=== PATIENT | female | born 1990 | race Caucasian/White ===

== ENCOUNTER 2021-05-31 15:42 | Emergency (ER) | payer OTHER, SELFPAY ==
--- NOTE | ~2021-05-31 | XR_ITS ---
EXAMINATION: XR FOOT, RIGHT XR FOOT, LEFT CLINICAL INFORMATION: Bilateral foot pain. COMPARISON: None TECHNIQUE: AP, lateral, and oblique views of each foot. FINDINGS: RIGHT FOOT: Small enthesopathic spur is present at the plantar fascial origin on the calcaneus. No fracture. Alignment is anatomic. Joint spaces are maintained. LEFT FOOT: Small enthesopathic spur is present at the plantar fascial origin on the calcaneus. No fracture. Alignment is anatomic. Joint spaces are maintained. XR/XR foot RT 2V IMPRESSION: No acute osseous findings in the feet. Small plantar calcaneal enthesopathic spurs bilaterally.
--- NOTE | ~2021-05-31 | XR_ITS ---
EXAMINATION: XR FOOT, RIGHT XR FOOT, LEFT CLINICAL INFORMATION: Bilateral foot pain. COMPARISON: None TECHNIQUE: AP, lateral, and oblique views of each foot. FINDINGS: RIGHT FOOT: Small enthesopathic spur is present at the plantar fascial origin on the calcaneus. No fracture. Alignment is anatomic. Joint spaces are maintained. LEFT FOOT: Small enthesopathic spur is present at the plantar fascial origin on the calcaneus. No fracture. Alignment is anatomic. Joint spaces are maintained. XR/XR foot LT 2V IMPRESSION: No acute osseous findings in the feet. Small plantar calcaneal enthesopathic spurs bilaterally.
[2021-05-31 16:24] VITALS: BP 125/49; PULSE 72; RESP 18; TEMP 36.7; O2SAT 98; BMI 31.3
[2021-05-31 18:36] VITALS: BP 112/54; PULSE 61; RESP 16; TEMP 37.1; O2SAT 99
--- NOTE | 2021-05-31 18:49 | ED.LOWEXIN ---
HPI - Extremity Injury (Lower) General Chief Complaint: Extremity Injury, Lower Stated Complaint: feet pain Time Seen by Provider: 05/31/21 20:03 Source: patient Mode of arrival: ambulatory Limitations: no limitations History of Present Illness HPI Narrative: 31-year-old female with no significant past medical history presents with 4 days of bilateral foot pain. States that it hurts more in the morning than at night, however it is painful throughout the day. She feels pain from the heel all way up to the toes to both feet. She does not report any trauma, jumping, running, or any significant physical exertion. Does not have any immune deficiencies or known osteoporosis. Does not take any prednisone or hormones. Denies any other concerning symptoms at this time. MD complaint: foot injury Onset (ago): day(s) (4) Type of Injury: unknown Place: home Severity: moderate Severity scale (1-10): 6 Relieving factors: nothing Exacerbating factors: weight bearing, movement and palpation Other symptoms: none Related Data Previous Rx's Medication Instructions Recorded cetirizine 10 mg capsule (All Day 10 mg PO DAILY #90 cap 12/18/20 Allergy (cetirizine)) ibuprofen 800 mg tablet 800 mg PO TID PRN #90 tab 12/18/20 ibuprofen 600 mg tablet 600 mg PO Q6H PRN #60 tab 05/31/21 Allergies Allergy/AdvReac Type Severity Reaction Status Date / Time No Known Allergies Allergy Unverified 07/17/20 18:35 [No Known Allergies*] Review of Systems Review of Systems: Constitutional: No Fever, No Chills ENT/Mouth: No Ear Pain, No Hoarseness, No sore throat Eyes: No Eye Pain, No Swelling, No Redness, No Foreign Body Cardiovascular: No Chest Pain, No SOB Respiratory: No Cough, No Dyspnea Gastrointestinal: No Nausea, No Vomiting, No Diarrhea, No abdominal Pain Genitourinary: No Dysuria, No Hematuria Musculoskeletal: positive bilateral foot pain, No Myalgias, No Joint Swelling Skin: No Skin lacerations, No rash Neuro: No Weakness, No Numbness, No Paresthesias, No Loss of Consciousness, No Dizziness, No Headache Psych: No Anxiety/Panic, No Depression Heme/Lymph: no easy bruising, no Lymphadenopathy Endocrine: No Polyuria, No Polydipsia Yes all other systems are reviewed and are negative PMFSH Past Medical History Attestation statement: The following information was validated with the patient. Source: old records reviewed Medical History delivery delivered Dysmenorrhea Overweight Rhinitis, allergic Family History Family History Father No problems noted. Mother No problems noted. Social History Social History Advance Directives: No Advance Directives Information Provided: Yes Patient : No Physical Exam Vital Signs: Vital Signs: Last Vital Signs Temp 98.7 F 05/31/21 18:36 Pulse 61 05/31/21 18:36 Resp 16 05/31/21 18:36 BP 112/54 L 05/31/21 18:36 Pulse Ox 99 05/31/21 18:36 Body Mass Index 31.3 Appearance: Alert. Oriented X3. No acute distress. Eyes: Pupils equal, round and reactive to light. ENT: Pharynx normal. Neck: Normal inspection. Neck supple. CVS: Normal heart rate and rhythm. Pulses normal. Respiratory: No respiratory distress. Breath sounds normal. Abdomen: Soft and nontender. Skin: Skin warm and dry. Normal skin color. Normal skin turgor. Extremities: No lower extremity edema. Full range of motion to all extremities, gait well balanced well coordinated, brisk capillary refill and equal pedal pulses. Neuro: No motor deficit. No sensory deficit. Cranial nerves 2-12 intact. Course Course Course Narrative: 31-year-old female presents with bilateral foot pain, her descriptions sounds most likely like plantar fasciitis however and will order x-rays to rule out fracture, and osteophytes. Bilateral calcaneal spurs noted to x-rays, will refer to Podiatry. Patient verbalized understanding of and agrees to plan of care discharge home. MDM - Extremity Injury (Lower) [facility] Narrative Medical decision making narrative: Plantar fasciitis, calcaneal spur Differential Diagnosis Differential diagnosis: Likely ankle sprain and strain Medical Records Attestation: I reviewed the patient's medical records. Imaging Data Bilateral foot x-ray: Attestation: I personally reviewed and interpreted this imaging study as follows: Radiologist's impression: EXAMINATION: XR CHEST CLINICAL INFORMATION: SOB. COMPARISON: Chest 03/04/2021 TECHNIQUE: 2 views of the chest were obtained. FINDINGS: There is mild cardiomegaly. The pulmonary vascularity is normal. The lungs are well-expanded and clear. No gross bony abnormality seen. XR/XR chest 2V IMPRESSION: Mild cardiomegaly. No acute process seen. Discharge Plan Discharge Clinical Impression: Bilateral calcaneal spurs Patient Disposition: Home, Self-Care Instructions: Plantar Fasciitis (ED), Heel Spur (ED) Additional Instructions: You were evaluated for bilateral foot pain. X-rays indicate heel spurs. Please follow-up with Podiatry. Your symptoms are also consistent with plantar fasciitis. Please use Motrin 600 mg every 6 hours as needed for pain management. Use ice to help alleviate pain. Follow-up with podiatry. Thank you for choosing this emergency department for evaluation. Please follow-up with primary care physician as needed. Return to the emergency department for any new, concerning, or worsening symptoms. Prescriptions: New ibuprofen 600 mg tablet 600 mg PO Q6H PRN (Reason: pain) Qty: 60 RF: 0 No Action All Day Allergy (cetirizine) 10 mg capsule 10 mg PO DAILY Qty: 90 RF: 3 ibuprofen 800 mg tablet 800 mg PO TID PRN (Reason: pain) Qty: 90 RF: 3 Referrals: Dylan Ruiz [Physician] - 2 days (Plantar fasciitis and calcaneal spurs bilaterally) Interventions: ED Discharge Assessment Last Done: 05/31/21 20:25 Discharge Date/Time: 05/31/21 20:26
== END 2021-05-31 20:26 | disposition home or self-care (01) ==
PROVIDERS: Emergency Provider Internal Medicine; PCP Internal Medicine
DX: M72.2 Plantar fascial fibromatosis (principal); M77.31 Calcaneal spur, right foot; M77.32 Calcaneal spur, left foot; Z79.899 Other long term (current) drug therapy
CPT/HCPCS: 73620; 99283

== ENCOUNTER 2021-10-21 06:01 | Outpatient (REF) | payer OTHER, SELFPAY ==
[2021-10-21 11:49] LABS: Hematocrit 37.4 % (37.0-47.0); Hemoglobin 11.6 g/dl (12.0-16.0); Mean Corpuscular Hemoglobin 27.8 pg (27.0-33.0); Mean Corpuscular Volume 89.5 fL (80.0-98.0); Mean Platelet Volume 9.2 fL (9.4-12.3); Platelet Count 328 X10*3/uL (160-400); Red Blood Count 4.18 X10*6/uL (4.20-5.50); Red Cell Distribution Width 12.7 % (11.0-16.0); White Blood Count 4.7 X10*3/uL (4.8-10.8)
[2021-10-21 12:18] LABS: Alanine Aminotransferase 18 U/L (0-31); Alkaline Phosphatase 71 U/L (39-117); Anion Gap 10 (12-20); Aspartate Amino Transferase 16 U/L (5-31); Bilirubin Total 0.5 mg/dL (0.0-1.0); Blood Urea Nitrogen 9 mg/dL (9-16); Carbon Dioxide 27 mmol/L (22-29); Chloride 109 mmol/L (96-108); Cholesterol 178 mg/dL; Estimated Glomerular Filt Rate > 60; Glucose Fasting 98 mg/dL (60-99); HDL Cholesterol 44 mg/dL; LDL Cholesterol Calculated 124 mg/dl; Potassium 3.7 mmol/L (3.3-5.1); Sodium 142 mmol/L (135-145); Total Protein 6.7 g/dL (6.5-8.0); Triglycerides 53 mg/dL
== END 2021-10-21 06:02 | disposition home or self-care (01) ==
LOC: HO.HMGCLDS 06:01
PROVIDERS: PCP Internal Medicine; Visit Provider Internal Medicine
DX: Z00.00 Encounter for general adult medical examination without abnormal findings (principal)
CPT/HCPCS: 36415; 80053; 80061; 85027

== ENCOUNTER 2023-01-19 07:28 | Outpatient (REF) | payer OTHER, SELFPAY ==
[2023-01-22 08:39] LABS: TS Negative Control Passed; TS Panel A 0; TS Panel B 0; TS Positive Control Passed; TSpotTB Negative (Negative)
== END 2023-01-19 07:29 | disposition home or self-care (01) ==
LOC: HO.HMGCLDS 07:28
PROVIDERS: PCP Internal Medicine; Visit Provider Internal Medicine
DX: Z11.1 Encounter for screening for respiratory tuberculosis (principal)
CPT/HCPCS: 36415; 86481

== ENCOUNTER 2023-02-03 08:28 | Outpatient (REF) | payer OTHER, SELFPAY ==
[2023-02-03 11:33] LABS: MANUAL DIFF FLAG NO
[2023-02-03 11:46] LABS: Basophils Percent Auto 0.7 % (0-2); Eosinophils Absolute Auto 0.2 X10*3/uL (0.0-0.4); Eosinophils Percent Auto 3.9 % (0-4); Hematocrit 37.1 % (37.0-47.0); Hemoglobin 11.7 g/dl (12.0-16.0); Imm Gran Abs Auto 0.01 X10*3/uL (0.00-0.03); Imm Gran Pct Auto 0.2 % (0.0-0.4); Lymphocytes Absolute Auto 1.3 X10*3/uL (1.2-4.9); Lymphocytes Percent Auto 30.4 % (20-40); Mean Corpuscular HGB Conc 31.5 g/dl (31.0-35.0); Mean Corpuscular Hemoglobin 27.3 pg (27.0-33.0); Mean Corpuscular Volume 86.7 fL (80.0-98.0); Mean Platelet Volume 9.1 fL (9.4-12.3); Monocytes Absolute Auto 0.3 X10*3/uL (0.1-1.2); Neutrophils Absolute Auto 2.4 x10*3/uL (2.0-8.3); Neutrophils Percent Auto 56.8 % (45-73); Platelet Count 350 X10*3/uL (160-400); Red Blood Count 4.28 X10*6/uL (4.20-5.50); Red Cell Distribution Width 13.4 % (11.0-16.0); White Blood Count 4.2 X10*3/uL (4.8-10.8)
[2023-02-03 11:53] LABS: Appearance Urine Clear; Color Urine Yellow; Glucose Urine UA Negative (Negative); Leukocyte Esterase Urine Trace (Negative); Nitrite Urine Negative (Negative); Specific Gravity - Urine 1.025 (1.005-1.025); UMIC TRIGGER UA YES; Urine Blood Trace (Negative); Urine Ketones Negative (Negative); Urine Protein Negative (Neg-Trace)
[2023-02-03 12:00] LABS: Bacteria Urine None Seen (None Seen); Hyaline Casts Urine 0-2 /LPF (0-2); Squamous Epithelial Cell Urine 0-2 /HPF (0-2); WBC Urine 0-5 /HPF (0-5)
[2023-02-03 12:10] LABS: Alanine Aminotransferase 22 U/L (0-31); Albumin Level 3.9 g/dL (3.5-5.0); Alkaline Phosphatase 85 U/L (39-117); Anion Gap 11 (12-20); Aspartate Amino Transferase 23 U/L (5-31); Bilirubin Total 0.7 mg/dL (0.0-1.0); Blood Urea Nitrogen 11 mg/dL (9-16); Calcium 8.8 mg/dL (8.4-10.2); Carbon Dioxide 25 mmol/L (22-29); Chloride 110 mmol/L (96-108); Cholesterol 179 mg/dL; Estimated Glomerular Filt Rate > 60; Glucose Fasting 85 mg/dL (60-99); HDL Cholesterol 43 mg/dL; Iron 112 mcg/dL (30-160); LDL Cholesterol Calculated 122 mg/dl; Percent Iron Saturation 33 % (15-50); Potassium 3.8 mmol/L (3.3-5.1); Sodium 142 mmol/L (135-145); Total Iron Binding Capacity 338 mcg/dL (228-428); Triglycerides 73 mg/dL; Unsaturated Iron Binding 226 ug/dL
[2023-02-03 12:28] LABS: TSH reflex Free T4 1.49 uIU/mL (0.32-4.0)
== END 2023-02-03 08:29 | disposition home or self-care (01) ==
LOC: HO.HMGCLDS 08:28
PROVIDERS: PCP Internal Medicine; Visit Provider Internal Medicine
DX: Z00.00 Encounter for general adult medical examination without abnormal findings (principal)
CPT/HCPCS: 36415; 80053; 80061; 81001; 83540; 84443; 85025

== ENCOUNTER 2023-06-24 17:27 | Emergency (ER) | payer OTHER, SELFPAY ==
[2023-06-24 18:13] VITALS: BP 135/61; PULSE 76; RESP 17; TEMP 36.4; O2SAT 99; BMI 37.8
--- NOTE | 2023-06-24 18:14 | ED.GENADULT ---
HPI - General Adult General Chief complaint: General Medical Stated complaint: lower back pain, blood in urine Time Seen by Provider: 06/24/23 22:13 Source: patient Mode of arrival: ambulatory Limitations: no limitations History of Present Illness HPI narrative: 33-year-old female previously healthy presents the ER with complaints of several months of intermittent hematuria with no associated dysuria, urinary frequency, urinary urgency. Patient reports she has been seen by her primary care doctor and was informed that she had some microscopic hematuria on her urinalysis. It was recommended that she return to be seen but the patient tells me that she never followed up. Patient reports she has had lower back pain which is intermittent and is worsened with movement over the last few months as well. She denies any flank pain, abdominal pain, vomiting, fevers or chills. No vaginal discharge, rashes or lesions. Related Data Previous Rx's Medication Instructions Recorded ibuprofen 800 mg tablet 800 mg PO TID PRN for pain #90 tabs 06/10/21 ibuprofen 600 mg tablet 600 mg PO Q6H PRN pain #60 tabs 11/24/22 cetirizine 10 mg capsule (All Day 10 mg PO DAILY #90 caps 01/17/23 Allergy (cetirizine)) cetirizine 10 mg tablet (Zyrtec) 10 mg PO DAILY #90 tabs 02/07/23 Allergies Allergy/AdvReac Type Severity Reaction Status Date / Time milk AdvReac Mild Rash Verified 02/03/23 07:50 Review of Systems Review of Systems: Yes all other systems are reviewed and are negative Constitutional: Constitutional: Reports no additional constitutional complaints, Denies body ache(s), Denies chills, Denies fever(s), Denies headache(s) and Denies weakness Eyes: Eyes: Reports no additional eye complaints and Denies change in vision ENT: Reports system reviewed and no additional complaints, except as documented, Denies dizziness, Denies headache(s), Denies nasal congestion, Denies nasal discharge and Denies neck pain Cardiovascular: Cardiovascular: Reports no additional cardiovascular complaints, Denies chest pain, Denies leg edema and Denies dyspnea Respiratory: Respiratory: Reports no additional respiratory complaints, Denies cough and Denies dyspnea Gastrointestinal: Gastrointestinal: Reports no additional gastrointestinal complaints, Denies abdominal pain, Denies diarrhea, Denies nausea and Denies vomiting Genitourinary: Genitourinary: Reports no additional female genitourinary complaints, Reports hematuria and Denies urinary incontinence Musculoskeletal: Musculoskeletal: Reports no additional musculoskeletal complaints, Reports back pain, Denies arthralgias, Denies joint swelling, Denies neck pain, Denies numbness and Denies tingling Integumentary/Breasts: Skin/Breast: Reports system reviewed and no additional complaints, except as docu and Denies rash Neurologic: Reports system reviewed and no additional complaints, except as documented, Denies dizziness, Denies headache(s), Denies numbness, Denies tingling and Denies weakness [facility] Past Medical History Attestation statement: The following information was validated with the patient. Source: old records reviewed and nursing notes reviewed Medical History Annual physical exam delivery delivered Dysmenorrhea Food allergy Normal pelvic exam Overweight Rhinitis, allergic Family History Family History Father No problems noted. Mother No problems noted. Social History Social History Housing: House Patient Tobacco Use Status: Never used Tobacco e-Cigarette/Vaping Use: Never Used Advance Directives: No Advance Directives Information Provided: No Current occupational status: employed Cognitive needs: No Hearing needs: No Vision needs: No Physical Exam ED Vital Signs: Vital Signs - 24 hr 06/24/23 18:13 06/24/23 22:59 Temperature 97.5 F 97.9 F Pulse Rate 76 79 Respiratory Rate 17 16 Blood Pressure 135/61 130/73 Pulse Oximetry 99 99 Oxygen Delivery Method Room Air Room Air BMI result Body Mass Index 37.8 Const General: cooperative, healthy appearing, comfortable and no acute distress Orientation/consciousness: patient oriented x3 Limitations: no limitations HENMT Head: Yes normal to inspection Ears: hearing grossly normal bilaterally Eyes General: appearance normal, both eyes and all related structures Pupils: Equal, round and reactive pupils present Neck Neck: Yes normal visual inspection and Yes full ROM Chest Chest palpation & inspection: normal inspection of the chest Resp Effort & Inspection: normal respiratory effort Auscultation: clear to auscultation bilaterally Cardio Rate: regular rate Rhythm: regular rhythm Peripheral pulses: Peripheral pulses 2+ throughout GI Inspection: Yes normal to inspection Palpation (GI): Soft to palpation and nontender Auscultation: normal bowel sounds General: Yes no CVA tenderness Back/Spine/Pelvis Back: no CVA tenderness Skin General skin exam: no rashes or lesions noted Neuro General: patient oriented x3 and moves all extremities Cranial nerves: Yes Equal, round and reactive pupils present Cognition (Neuro): normal cognition Gait exam (Neuro): Normal gait present Motor exam (neuro): 5/5 motor strength present throughout Sensory Exam: Normal double simultaneous stimulation for sensation Course Course Course Narrative: This is a rapid medical exam: Additional HPI, ROS, PE not included below will be deferred to primary provider. Patient is a 33-year-old female presenting to the emergency department with complaint of low back pain, suprapubic pain, and hematuria for months. States that she is passing blood clots every time she urinates. Patient states she is unsure if it is hematuria or vaginal bleeding. Last menses was earlier this month. States back pain is intermittent. Denies any nausea, vomiting, or diarrhea. Denies fevers. Denies recent unprotected sexual intercourse, STIs. Plan: UA, labs Reevaluation(s) Reevaluation #1: Labs are unremarkable. UA shows no evidence of hematuria. Recommend patient follow up outpatient with her primary care doctor. Reviewed worrisome signs and symptoms of when to return to the emergency room. Comfortable plan for discharge home. Medical Decision Making Medical Decision Making [facility] Narrative: 33-year-old female here with complaints of intermittent hematuria with no other urinary symptoms the last few months as well as intermittent lower back pain which is worsened with movement. On exam patient has no focal abdominal tenderness. Her abdomen is soft nontender. She has no CVA tenderness. Will check labs, UA Differential Diagnosis Differential Diagnoses: The differential diagnosis associated with the presentation includes Urinary tract infection Low concern for pyelonephritis or renal colic Lumbar strain Admission/Observation Consideration of admission/observation: Escalation of care including admission/observation considered See course of care Lab Data [facility] Lab Attestation statement: I reviewed the patient's lab results. Labs are unremarkable UA shows no signs of hematuria 06/24/23 19:37 06/24/23 19:37 Labs: Lab Results 06/24/23 06/24/23 06/24/23 Range/Units 19:37 19:37 19:37 WBC 6.5 (4.8-10.8) X10*3/uL RBC 4.10 L (4.20-5.50) X10*6/uL Hgb 11.0 L (12.0-16.0) g/dl Hct 35.2 L (37.0-47.0) % MCV 85.9 (80.0-98.0) fL MCH 26.8 L (27.0-33.0) pg MCHC 31.3 (31.0-35.0) g/dl RDW 13.6 (11.0-16.0) % Plt Count 342 (160-400) X10*3/uL MPV 8.6 L (9.4-12.3) fL Immature Gran % (Auto) 0.2 (0.0-0.4) % Neut % (Auto) 45.0 (45-73) % Lymph % (Auto) 39.8 (20-40) % [place] % (Auto) 10.1 (2-11) % Eos % (Auto) 4.4 H (0-4) % Baso % (Auto) 0.5 (0-2) % Lymph # (Auto) 2.6 (1.2-4.9) X10*3/uL [place] # (Auto) 0.7 (0.1-1.2) X10*3/uL Eos # (Auto) 0.3 (0.0-0.4) X10*3/uL Baso # (Auto) 0.0 (0.0-0.2) X10*3/uL Abs Immat Gran (auto) 0.01 (0.00-0.03) X10*3/uL Absolute Neuts (auto) 3.0 (2.0-8.3) x10*3/uL Absolute Nucleated RBC 0.000 (0.0-0.012) X10*3/uL Nucleated RBC % (auto) 0.0 (0.0-0.2) /100WBC Sodium 141 (135-145) mmol/L Potassium 3.9 (3.3-5.1) mmol/L Chloride 109 H (96-108) mmol/L Carbon Dioxide 25 (22-29) mmol/L Anion Gap 11 L (12-20) BUN 9 (9-16) mg/dL Creatinine 0.83 (0.5-1.4) mg/dL Estim Creat Clear Calc 121.6 Estimated GFR > 60 Random Glucose 92 (60-115) mg/dL Calcium 8.8 (8.4-10.2) mg/dL Total Bilirubin 0.2 (0.0-1.0) mg/dL AST 46 H (5-31) U/L ALT 58 H (0-31) U/L Alkaline Phosphatase 118 H (39-117) U/L Total Protein 7.5 (6.5-8.0) g/dL Albumin 3.8 (3.5-5.0) g/dL Beta HCG, Quant 3 mIU/mL Urine Color Yellow Urine Appearance Clear Urine pH 6.5 (5.0-9.0) Ur Specific [place] 1.025 (1.005-1.025) Urine Protein Negative (Neg-Trace) mg/dL Urine Glucose (UA) Negative (Negative) mg/dL Urine Ketones Trace (Negative) mg/dL Urine Blood Negative (Negative) Urine Nitrite Negative (Negative) Ur Leukocyte Esterase Negative (Negative) Tests considered The following testing was considered but not selected: No flank pain, abdominal pain, fever, vomiting, evidence of leukocytosis or leuks or RBC on urinalysis suggests concern for pyelonephritis or renal colic and need for CT Discharge Plan Discharge Clinical Impression: Normal exam, Lumbar strain Patient Disposition: Home, Self-Care Instructions: Low Back Strain (ED), Normal Exam (ED) Additional Instructions: Your urine does not show any signs of blood in it today. Your blood work is normal. Please follow-up with your primary care doctor if you continue to experience intermittent blood in urine Return for high back pain, fever, vomiting Prescriptions: No Action ibuprofen 800 mg tablet 800 mg PO TID PRN (Reason: for pain) Qty: 90 3RF ibuprofen 600 mg tablet 600 mg PO Q6H PRN (Reason: pain) Qty: 60 3RF All Day Allergy (cetirizine) 10 mg capsule 10 mg PO DAILY Qty: 90 3RF cetirizine [Zyrtec] 10 mg tablet 10 mg PO DAILY Qty: 90 2RF Referrals: Rachelle Rodriguez MD [Primary Care Provider] - 1 week Interventions: ED Discharge Assessment Last Done: 06/24/23 23:04 Discharge Date/Time: 06/24/23 23:05
--- NOTE | 2023-06-24 19:40 | MHC.EDTECH ---
PATIENT BLOOD DRAWN AND URINE SAMPLE COLLECTED AND SENT TO LAB .
[2023-06-24 19:42] LABS: MANUAL DIFF FLAG NO
[2023-06-24 19:44] LABS: Appearance Urine Clear; Color Urine Yellow; Glucose Urine UA Negative (Negative); Leukocyte Esterase Urine Negative (Negative); Nitrite Urine Negative (Negative); PH 6.5 (5.0-9.0); Specific Gravity - Urine 1.025 (1.005-1.025); Urine Blood Negative (Negative); Urine Ketones Trace mg/dL (Negative); Urine Protein Negative (Neg-Trace)
[2023-06-24 19:51] LABS: Basophils Percent Auto 0.5 % (0-2); Eosinophils Absolute Auto 0.3 X10*3/uL (0.0-0.4); Eosinophils Percent Auto 4.4 % (0-4); Hematocrit 35.2 % (37.0-47.0); Imm Gran Abs Auto 0.01 X10*3/uL (0.00-0.03); Imm Gran Pct Auto 0.2 % (0.0-0.4); Lymphocytes Absolute Auto 2.6 X10*3/uL (1.2-4.9); Lymphocytes Percent Auto 39.8 % (20-40); Mean Corpuscular HGB Conc 31.3 g/dl (31.0-35.0); Mean Corpuscular Hemoglobin 26.8 pg (27.0-33.0); Mean Corpuscular Volume 85.9 fL (80.0-98.0); Mean Platelet Volume 8.6 fL (9.4-12.3); Monocytes Absolute Auto 0.7 X10*3/uL (0.1-1.2); Monocytes Percent Auto 10.1 % (2-11); Platelet Count 342 X10*3/uL (160-400); Red Cell Distribution Width 13.6 % (11.0-16.0); White Blood Count 6.5 X10*3/uL (4.8-10.8)
[2023-06-24 20:03] LABS: Alanine Aminotransferase 58 U/L (0-31); Albumin Level 3.8 g/dL (3.5-5.0); Alkaline Phosphatase 118 U/L (39-117); Anion Gap 11 (12-20); Aspartate Amino Transferase 46 U/L (5-31); Bilirubin Total 0.2 mg/dL (0.0-1.0); Blood Urea Nitrogen 9 mg/dL (9-16); Calcium 8.8 mg/dL (8.4-10.2); Carbon Dioxide 25 mmol/L (22-29); Chloride 109 mmol/L (96-108); Creatinine Clr Calc Pharmacy 121.6; Estimated Glomerular Filt Rate > 60; Glucose Random 92 mg/dL (60-115); Potassium 3.9 mmol/L (3.3-5.1); Sodium 141 mmol/L (135-145); Total Protein 7.5 g/dL (6.5-8.0)
[2023-06-24 20:04] LABS: HCG Quantitative 3 mIU/mL
--- OUTSIDE RECORDS SUMMARY | 2023-06-24 21:45 | XMS_ITS | Continuity of Care Document ---
Author Name Unknown Organization [facility] Address [address] [place] [id number]- Care Team Providers Care Flue Tile Press Operator Name Role Phone Rachelle Rodriguez MD Primary Care Physician Encounter [facility] [place] Date(s): 10/20/20 - 11/19/[address] [id number] Allergies, Adverse Reactions, Alerts Substance Reaction Severity Status NKA Active Immunizations Given and Recorded Vaccine Date Status Refusal Reason Human Papillomavirus Vaccine 1 09/04/08 Given Human Papillomavirus Vaccine 2 05/01/08 Given Human Papillomavirus Vaccine 3 02/26/08 Given 1Admin Note: HPV SERIES COMPLETED 2Admin Note: vis 3Admin Note: 2nd gardasil scheduled Medications ibuprofen 800 mg oral tablet 800 mg, 1, tablet, By Mouth, Every 8 hours, # 30 tablet, Refills 2, Tot. Refills 2, Maintenance, 04/24/20 12:28:00 EDT, Route to Pharmacy Electronically, [facility] #[id number], 167, cm, 01/02/20 8:43:00 EST, Height Start Date: 04/24/20 Status: Ordered oxyCODONE 5 mg oral capsule 1 capsule = 5 mg, By Mouth, Every 6 hours, PRN as needed for pain, # 12 capsule, 0 Refills, Maintenance, 04/24/20 12:28:00 EDT, Capsule, [facility] #[id number], Partial fill upon patient request, 167, cm, 01/02/20 8:43:00 EST, Height Start Date: 04/24/20 Status: Ordered ZyrTEC 10 mg oral tablet 1 tablet = 10 mg, By Mouth, Daily, # 30 tablet, 0 Refills, Maintenance, 01/02/20 9:09:00 EST, Tablet Start Date: 01/02/20 Status: Ordered Problem List Condition Effective Dates Status Health Status Inform ant 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
--- OUTSIDE RECORDS SUMMARY | 2023-06-24 21:45 | XMS_ITS | Continuity of Care Document ---
Author Name Unknown Organization [facility] Address [address] [place] [id number]- Care Team Providers Care Freight Caller Name Role Phone Rachelle Rodriguez MD Primary Care Physician [place] [facility] [place]17[place] - 01/16/[address] [address] Allergies, Adverse Reactions, Alerts Substance Reaction Severity [...] 04/24/20 12:28:00 EDT, Route to Pharmacy Electronically, [facility] #[id number], 167, cm, 01/02/20 8:43:00 EST, Height Start Date: 04/24/20 Status: Ordered oxyCODONE 5 mg oral capsule 1 capsule = 5 mg, By Mouth, Every 6 hours, PRN as needed for pain, # 12 capsule, 0 Refills, Maintenance, 04/24/20 12:28:00 EDT, Capsule, [facility] #[id number], Partial fill upon patient request, 167, cm, [...]
--- OUTSIDE RECORDS SUMMARY | 2023-06-24 21:45 | XMS_ITS | Continuity of Care Document ---
Author Name Unknown Organization [facility] Address [address] [place] [id number]- Care Team Providers Care Cloth Weaver Name Role Phone Ileana HIGHTOWER, Ivon Tracy Primary Care Physician Encounter [facility] Date(s): 02/20/20 - 03/21/[address] [address]- [facility] Attending Physician: Admtr, Magy Allergies, Adverse Reactions, Alerts Substance Reaction Severity Status NKA Active Immunizations Given and Recorded Vaccine Date Status Refusal Reason Human Papillomavirus Vaccine 1 09/04/08 Given Human Papillomavirus Vaccine 2 05/01/08 Given Human Papillomavirus Vaccine 3 02/26/08 Given 1Admin Note: HPV SERIES COMPLETED 2Admin Note: vis 3Admin Note: 2nd gardasil scheduled Medications ZyrTEC 10 mg oral tablet 1 tablet [...]
--- OUTSIDE RECORDS SUMMARY | 2023-06-24 21:45 | XMS_ITS | Continuity of Care Document ---
Author Name Unknown Organization [facility] Address [address] [place] [id number]- Care Team Providers Care Allergy Physician Name Role Phone Rachelle Rodriguez MD Primary Care Physician [phone] Encounter [facility] Date(s): 12/15/21 - 01/30/[address] [id number] Attending Physician: Not on Staff, Attending MD Allergies, Adverse Reactions, Alerts No Known Allergies Immunizations Given and Recorded Vaccine Date Status [...] 04/24/20 12:28:00 EDT, Route to Pharmacy Electronically, [facility] #[id number], 167, cm, 01/02/20 8:43:00 EST, Height Start Date: 04/24/20 Status: Ordered oxyCODONE 5 mg oral capsule 1 capsule = 5 mg, By Mouth, Every 6 hours, PRN as needed for pain, # 12 capsule, 0 Refills, Maintenance, 04/24/20 12:28:00 EDT, Capsule, [facility] #[id number], Partial fill upon patient request, 167, cm, [...] of cervix(Confirmed) Active [facility] Patient(Confirmed) Active Obese class II(Confirmed) Active Dyspareunia in female(Confirmed) Active Social History Social History Type Response Smoking Status Never smoker; Tobacc o user in household: No entered on: 12/08/16 Sex Female
--- OUTSIDE RECORDS SUMMARY | 2023-06-24 21:45 | XMS_ITS | Continuity of Care Document ---
Author Name Unknown Organization [facility] Address [address] [place] [phone]- Care Team Providers Care Machine Pan Greaser Name Role Phone Rachelle Rodriguez MD Primary Care Physician Encounter [facility] Date(s): 05/07/20 - 06/06/20 [facility] [address] [address]- [facility] Attending Physician: Admtr, Ar8 Allergies, Adverse Reactions, Alerts Substance Reaction Severity [...] 04/24/20 12:28:00 EDT, Route to Pharmacy Electronically, [facility] #[id number], 167, cm, 01/02/20 8:43:00 EST, Height Start Date: 04/24/20 Status: Ordered oxyCODONE 5 mg oral capsule 1 capsule = 5 mg, By Mouth, Every 6 hours, PRN as needed for pain, # 12 capsule, 0 Refills, Maintenance, 04/24/20 12:28:00 EDT, Capsule, [facility] #[id number], Partial fill upon patient request, 167, cm, [...]
--- OUTSIDE RECORDS SUMMARY | 2023-06-24 21:45 | XMS_ITS | Continuity of Care Document ---
Author Name Unknown Organization [facility] Address [address] [place] [phone]- Care Team Providers Care Storm Door Maker Name Role Phone Ileana HIGHTOWER, Ivon Tracy Primary Care Physician Encounter [facility] Date(s): 01/08/20 - 03/21/20 [facility] [address] [address]- [facility] Attending Physician: Not on Staff, Attending MD Allergies, Adverse Reactions, Alerts Substance Reaction Severity [...]
--- OUTSIDE RECORDS SUMMARY | 2023-06-24 21:45 | XMS_ITS | Continuity of Care Document ---
Author Name Unknown Organization [facility] Address [address] [place] [address]- Care Team Providers Care Service Center Technician Name Role Phone Rachelle Rodriguez MD Primary Care Physician [phone] [place] [facility] [place] - 01/28/[address] [address]- Attending Physician: Admtr, Magy Allergies, Adverse Reactions, Alerts No Known Allergies [...] 04/24/20 12:28:00 EDT, Route to Pharmacy Electronically, [facility] #[id number], 167, cm, 01/02/20 8:43:00 EST, Height Start Date: 04/24/20 Status: Ordered oxyCODONE 5 mg oral capsule 1 capsule = 5 mg, By Mouth, Every 6 hours, PRN as needed for pain, # 12 capsule, 0 Refills, Maintenance, 04/24/20 12:28:00 EDT, Capsule, [facility] #[id number], Partial fill upon patient request, 167, cm, [...]
--- OUTSIDE RECORDS SUMMARY | 2023-06-24 21:45 | XMS_ITS | Continuity of Care Document ---
Author Name Unknown Organization [facility] Address [address] [place] [address]- Care Team Providers Care Itinerant Teacher Assistant Name Role Phone Rachelle Rodriguez MD Primary Care Physician Encounter [facility] [place] Date(s): 03/28/20 - 05/16/20 [facility] [address] [address]- [facility] Attending Physician: Not on Staff, Attending [...] 04/24/20 12:28:00 EDT, Route to Pharmacy Electronically, [facility] #[id number], 167, cm, 01/02/20 8:43:00 EST, Height Start Date: 04/24/20 Status: Ordered oxyCODONE 5 mg oral capsule 1 capsule = 5 mg, By Mouth, Every 6 hours, PRN as needed for pain, # 12 capsule, 0 Refills, Maintenance, 04/24/20 12:28:00 EDT, Capsule, [facility] #[id number], Partial fill upon patient request, 167, cm, [...]
--- OUTSIDE RECORDS SUMMARY | 2023-06-24 21:45 | XMS_ITS | Continuity of Care Document ---
Author Name Unknown Organization [facility] Address [address] [place] [address]- Care Team Providers Care Braze Operator Name Role Phone Rachelle Rodriguez MD Primary Care Physician [phone] [place] [facility] [place] [id number] Date(s): 04/12/20 - 05/12/20 [facility] [address] [place] [address]- [facility] Attending Physician: Magy Garcia Admitting Physician: AdmtrMagy Referring Physician: AdmtrMagy Allergies, Adverse Reactions, Alerts Substance Reaction Severity [...] 04/24/20 12:28:00 EDT, Route to Pharmacy Electronically, [facility] #[id number], 167, cm, 01/02/20 8:43:00 EST, Height Start Date: 04/24/20 Status: Ordered oxyCODONE 5 mg oral capsule 1 capsule = 5 mg, By Mouth, Every 6 hours, PRN as needed for pain, # 12 capsule, 0 Refills, Maintenance, 04/24/20 12:28:00 EDT, Capsule, [facility] #[id number], Partial fill upon patient request, 167, cm, [...]
--- OUTSIDE RECORDS SUMMARY | 2023-06-24 21:45 | XMS_ITS | Continuity of Care Document ---
Author Name Unknown Organization [facility] Address [address] [place] [address]- Care Team Providers Care Field Human Resources Manager Name Role Phone Rachelle Rodriguez MD Primary Care Physician En[place] [facility] [place] Date(s): 03/26/20 - 04/27/[address] [address]- [facility] Attending Physician: Gutierrez Rivas MD Admitting Physician: Gutierrez Rivas MD Allergies, Adverse Reactions, Alerts Substance Reaction [...] 04/24/20 12:28:00 EDT, Route to Pharmacy Electronically, [facility] #[id number], 167, cm, 01/02/20 8:43:00 EST, Height Start Date: 04/24/20 Status: Ordered oxyCODONE 5 mg oral capsule 1 capsule = 5 mg, By Mouth, Every 6 hours, PRN as needed for pain, # 12 capsule, 0 Refills, Maintenance, 04/24/20 12:28:00 EDT, Capsule, [facility] #[id number], Partial fill upon patient request, 167, cm, [...]
--- OUTSIDE RECORDS SUMMARY | 2023-06-24 21:45 | XMS_ITS | Continuity of Care Document ---
Author Name Unknown Organization [facility] ter Address [address] [place] [address]- Care Team Providers Care Coordinating Producer Name Role Phone Ileana HIGHTOWER, Ivon Tracy Primary Care Physician [place] [facility] [place] 01/09/20 - 02/16/[address] [address]- [facility] Attending Physician: Zaina Jackman MD Admitting Physician: Zaina Jackman MD Allergies, Adverse Reactions, Alerts Substance Reaction [...]
--- OUTSIDE RECORDS SUMMARY | 2023-06-24 21:45 | XMS_ITS | Continuity of Care Document ---
Author Name Unknown Organization [facility] ter Address [address] [place] [address]- Care Team Providers Care Application Support Administrator Name Role Phone Rachelle Rodriguez MD Primary Care Physician [place] [facility] [id number] Date(s): 04/24/20 - 04/24/[address] [address]- [facility] Discharge Disposition: A-D/C Home Attending Physician: Christo HIGHTOWER, Gutierrez Millard Admitting Physician: Christo HIGHTOWER, Gutierrez Millard Referring Physician: Christo HIGHTOWER, Gutierrez Millard Allergies, Adverse Reactions, Alerts Substance Reaction Severity [...] 04/24/20 12:28:00 EDT, Route to Pharmacy Electronically, [facility] #[id number], 167, cm, 01/02/20 8:43:00 EST, Height Start Date: 04/24/20 Status: Ordered oxyCODONE 5 mg oral capsule 1 capsule = 5 mg, By Mouth, Every 6 hours, PRN as needed for pain, # 12 capsule, 0 Refills, Maintenance, 04/24/20 12:28:00 EDT, Capsule, [facility] #[id number], Partial fill upon patient request, 167, cm, [...] (BMI 30.0-34.9)(Confirmed) Active Dyspareunia in female(Confirmed) Active Vital Signs Most recent to oldest [Reference Range]: 1 2 3 Weight 99.6 kg (04/24/20 10:16 AM) Oxygen Saturation [94-100 %] 100 % (04/24/20 1:45 PM) 100 % (04/24/20 1:30 PM) 100 % (04/24/20 1:15 PM) Pulse Rate [55-90 bpm] 67 bpm (04/24/20 10:16 AM) Blood Pressure [90-138/55-84 mm Hg] 118/74mm Hg (04/24/20 1:45 PM) 122/72mm Hg (04/24/20 1:30 PM) 122/71mm Hg (04/24/20 1:15 PM) Respiratory Rate [16-30 br/min] 16 br/min (04/24/20 2:05 PM) 12 br/min *L* (04/24/20 1:45 PM) 10 br/min *L* (04/24/20 1:30 PM) Temperature [96.8-100.4 DegF] 97.5 DegF (04/24/20 1:45 PM) 97.3 DegF (04/24/20 12:45 PM) 98.3 DegF (04/24/20 10:16 AM) Liters per Minute 6 L/min (04/24/20 1:15 PM) 6 L/min (04/24/20 1:00 PM) 6 L/min (04/24/20 12:45 PM) Mode of Delivery (Oxygen) Room air (04/24/20 1:45 PM) Room air (04/24/20 1:30 PM) Simple face mask (04/24/20 1:15 PM) Temperature Route Temporal (04/24/20 1:45 PM) Temporal (04/24/20 12:45 PM) Temporal (04/24/20 10:16 AM) Social History Social History Type Response Smoking Status Never smoker; Tobacc o user in household: No entered on: 12/08/16 Sex Female
--- OUTSIDE RECORDS SUMMARY | 2023-06-24 21:45 | XMS_ITS | Continuity of Care Document ---
Author Name Unknown Organization [facility] Address [address] [place] [address]- Care Team Providers Care Consultant Nurse Name Role Phone Rachelle Rodriguez MD Primary Care Physician [phone] [place] [facility] [place] - 11/28/[address] [address]- Attending Physician: Admtr, Magy Allergies, Adverse Reactions, [...] 04/24/20 12:28:00 EDT, Route to Pharmacy Electronically, [facility] #[id number], 167, cm, 01/02/20 8:43:00 EST, Height Start Date: 04/24/20 Status: Ordered oxyCODONE 5 mg oral capsule 1 capsule = 5 mg, By Mouth, Every 6 hours, PRN as needed for pain, # 12 capsule, 0 Refills, Maintenance, 04/24/20 12:28:00 EDT, Capsule, [facility] #[id number], Partial fill upon patient request, 167, cm, [...]
[2023-06-24 22:59] VITALS: BP 130/73; PULSE 79; RESP 16; TEMP 36.6; O2SAT 99
== END 2023-06-24 23:05 | disposition home or self-care (01) ==
PROVIDERS: Registered Nurse Emergency; Emergency Provider Emergency Medicine; PCP Internal Medicine
DX: M54.50 Low back pain, unspecified (principal); N02.9 Recurrent and persistent hematuria with unspecified morphologic changes; Z79.899 Other long term (current) drug therapy
CPT/HCPCS: 36415; 80053; 81003; 84702; 85025; 99283; 99284

== ENCOUNTER 2023-08-19 09:16 | Outpatient (REF) | payer OTHER, SELFPAY ==
[2023-08-19 16:20] LABS: Urine Cytology See Pathology rpt
== END 2023-08-19 09:17 | disposition home or self-care (01) ==
LOC: HO.LAB 09:16
PROVIDERS: PCP Internal Medicine; Visit Provider Urology
DX: R31.9 Hematuria, unspecified (principal); N39.41 Urge incontinence; N92.6 Irregular menstruation, unspecified; N39.0 Urinary tract infection, site not specified
CPT/HCPCS: 81003; 87086; 88112; 99202

== ENCOUNTER 2023-08-19 09:16 | Outpatient (AMB) | payer OTHER, SELFPAY ==
--- NOTE | 2023-08-19 09:23 | A.OFFVIS_ITS ---
Intake Intake Visit Reasons: Hematuria Intake Note: NEW Patient presents today to established treatment for Hematuria: Meds- None Allergies to Antibiotic- No Known Allergies Blood Thinner- None Cruise Consultant Required: No Accompanied by: Self / Same As Patient Allergies milk Adverse Reaction (Mild, Verified 08/19/23 09:23) Rash HPI HPI Comments History of Present Illness Details Kassi is a 33-year-old female who presents today to the office to establish as a new patient for an evaluation of hematuria. 08/19/2023? She presents today for an evaluation of hematuria. She was seen in ER on 06/24/2023 with the complaints of back pain and hematuria. She denies urinary frequency and urgency at that time. She states that she has some episodes of urge incontinence at this time which is new for her. She also mentions changes in her menstrual cycle, notes that the length of the cycle is longer than it was before extended into 8-10 days and she is still seeing spotting. Patient has not seen any gynaecologist for a while. She denies any history cigarette smoking. Patient states that her maternal grandmother had a history of breast cancer. Evaluation today?UA? leukocytes: negative; blood: 1 +. Plan: Referred to [facility]. Will send urine for culture and cytology. Ordered US retroperitoneum. Follow-up in office cystoscopy. [facility] Medical History (Updated 08/19/23 @ 09:59 by Teo Ro MD) Irregular menstrual bleeding Normal pelvic exam Food allergy Annual physical exam delivery delivered Overweight Rhinitis, allergic Dysmenorrhea Family History Father No problems noted. Mother No problems noted. Social History Housing: House Patient Tobacco Use Status: Never used Tobacco e-Cigarette/Vaping Use: Never Used Current occupational status: employed Cognitive needs: No Hearing needs: No Vision needs: No Review of Systems Const All systems reviewed & are unremarkable except as noted in HPI and below Reports no additional complaints Eyes Reports no additional complaints ENT Reports no additional complaints Card Denies dyspnea Resp Denies cough and Denies dyspnea GI Reports no additional complaints Reports no additional complaints Musc Reports no additional complaints Skin/Breast Denies rash and Denies unusual bruising Neuro Reports no additional complaints Psych Reports no additional complaints Endo Reports no additional complaints Chris/Lymph Reports no additional complaints Aller/Immun Reports no additional complaints Physical Exam Const General: cooperative, healthy appearing and no acute distress Orientation/consciousness: patient oriented x3 HEENT Head: Yes normal to inspection, Yes normocephalic and Yes atraumatic Eyes Conjunctivae: conjunctivae normal Neck Neck: Yes normal visual inspection and Yes trachea midline Chest Chest palpation & inspection: normal inspection of the chest Resp Effort & Inspection: normal respiratory effort Cardio Rate: regular rate GI Inspection: Yes normal to inspection Palpation (GI): Soft to palpation Skin General skin exam: no rashes or lesions noted Neuro General: patient oriented x3 Extrem General: No edema Psych Appearance: grossly normal Results AMB Urinalysis, Automated UA Leukoctes 0 Giovanni/uL Last Edit by JEANNE Carcamo on 08/19/23 09:36 UA Nitrite Negative Last Edit by JEANNE Carcamo on 08/19/23 09:36 UA Urobilinogen 0.2 mg/dL Last Edit by JEANNE Carcamo on 08/19/23 09:3 6 UA Protein 0 mg/dL Last Edit by JEANNE Carcamo on 08/19/23 09:36 UA pH 6.0 Last Edit by JEANNE Carcamo on 08/19/23 09:36 UA Blood 25 Richard/uL Last Edit by JEANNE Carcamo on 08/19/23 09:36 UA Specific [place] 1.015 Last Edit by JEANNE Carcamo on 08/19/23 09: 36 UA Ketone Negative Last Edit by JEANNE Carcamo on 08/19/23 09:36 UA Bilirubin 0 mg/dL Last Edit by JEANNE Carcamo on 08/19/23 09:36 UA Glucose 0 mg/dL Last Edit by JEANNE Carcamo on 08/19/23 09:36 Results Reviewed Results Reviewed: Laboratory Last Values Urine pH (Auto) 6.0 08/19/23 09:29 Specific [place] (Auto) 1.015 08/19/23 09:29 Urine Protein (Auto) 0 mg/dL 08/19/23 09:29 Glucose (UA)(Auto) 0 mg/dL 08/19/23 09:29 Urine Ketones (Auto) Negative 08/19/23 09:29 Urine Blood (Auto) 25 Richard/uL 08/19/23 09:29 Urine Nitrite (Auto) Negative 08/19/23 09:29 Urine Bilirubin (Auto) 0 mg/dL 08/19/23 09:29 Urine Urobilinogen (Auto) 0.2 mg/dL 08/19/23 09:29 Leukocyte Esterase (Auto) 0 Giovanni/uL 08/19/23 09:29 Assessment & Plan Assessment & Plan (1) Hematuria: Code(s): R31.9 - Hematuria, unspecified (2) Urge incontinence of urine: Code(s): N39.41 - Urge incontinence (3) Irregular menstrual bleeding: Code(s): N92.6 - Irregular menstruation, unspecified Plan Referred to [facility]. Will send urine for culture and cytology. Ordered US retroperitoneum. Follow-up in office cystoscopy. Orders: Orders Urine Cytology 08/19/23 N39.41 - Urge incontinence, N92.6 - Irregular menstruation, unspecified, R31.9 - Hematuria, unspecified AMB Urinalysis Automated 08/19/23 Z13.9 - Encounter for screening, unspecified Urine Culture 08/19/23 N39.0 - Urinary tract infection, site not specified Referrals [facility] SERVICE LINE INSPECTOR Referral N92.6 - Irregular menstruation, unspecified Patient Instructions: The patient had an opportunity to ask questions regarding treatment plan. All questions were answered. Imaging, Laboratory studies and physical exam results were discussed and reviewed in detail. No major barriers to understanding were identified. The patient expressed understanding and agreement with the above treatment plan.? ? ? The patient is aware they should contact our office by phone for worsening of their current condition or the appearance of new symptoms. Compliance is encouraged with any medications and followup testing that is ordered.? ? ? It is a privilege to be allowed the opportunity to participate in the urologic care of your patient. If you have any questions or concerns regarding treatment for the above conditions please do not hesitate to contact me. The office telephone contact is [phone].? ? ? This note is constructed in part using voice recognition software. While every effort has been made to ensure accuracy biomedical analytical scientist errors may have been included.? ? ? Yours sincerely,? ? ? Teo Ro MD? Coding Level of Care Code New Pt Level 4 (23724) Diagnoses Hematuria R31.9 Urge incontinence of urine N39.41 Irregular menstrual bleeding N92.6
== END 2023-08-19 10:17 | disposition home or self-care (01) ==
PROVIDERS: PCP Internal Medicine; Visit Provider Urology
DX: R31.9 Hematuria, unspecified (principal); N39.41 Urge incontinence; N92.6 Irregular menstruation, unspecified
CPT/HCPCS: 99204

== ENCOUNTER 2023-09-13 12:46 | Outpatient (REF) | payer OTHER, SELFPAY ==
--- NOTE | ~2023-09-13 | US_ITS ---
EXAMINATION: US RETROPERITONEAL LIMITED (RENAL ONLY) CLINICAL INFORMATION: Hematuria, unspecified. COMPARISON: CT abdomen and pelvis with contrast 05/06/2020. TECHNIQUE: Real-time imaging of the kidneys. FINDINGS: RIGHT KIDNEY: 11.2 x 4.7 x 6.2 cm (SAG x AP x TRV). The kidney is normal in size, contour, and echogenicity. Renal cortical thickness is normal. No calculi or focal parenchymal lesions. No hydronephrosis. LEFT KIDNEY: 11.8 x 5.6 x 5.4 cm (SAG x AP x TRV). The kidney is normal in size, contour, and echogenicity. Renal cortical thickness is normal. No calculi or focal parenchymal lesions. No hydronephrosis. US/US renal BI IMPRESSION: Unremarkable renal ultrasound.
== END 2023-09-13 12:47 | disposition home or self-care (01) ==
LOC: HO.HMGCX 12:46
PROVIDERS: PCP Internal Medicine; Visit Provider Urology
DX: R31.9 Hematuria, unspecified (principal)
CPT/HCPCS: 76775

== ENCOUNTER 2023-09-30 10:13 | Outpatient (AMB) | payer OTHER, SELFPAY ==
--- NOTE | 2023-09-30 11:18 | MHC.OFFVIS ---
Intake Intake Visit Reasons: cysto/US Intake Note: Patient presents today for a CYSTOSCOPY Procedure: Meds: None Allergies to Antibiotic: No Known Allergies Blood Thinner: None Urinalysis test cleared for Cysto Disposable Uro-G Cystoscope Cannula: Lot: [id number] Exp: 03/13/2025 Terrazzo Mechanic Required: No Accompanied by: Self / Same As Patient Allergies milk Adverse Reaction (Mild, Verified 10/14/23 08:51) Rash HPI HPI Comments History of Present Illness Details Kassi is a 33-year-old female who is present today to the office for a follow-up. 09/30/2023? She is followed today for a cystoscopy procedure and US results. She was last seen by me on 08/19/2023 for hematuria. I have reviewed the US retroperitoneum results from 09/13/2023 revealed no calculi or focal parenchymal lesions. No hydronephrosis. Cystoscopy procedure: consent was obtained for cystoscopy procedure. Cystoscopy findings: bladder mucosa was wnl; no suspicious bladder lesions noted. Review of chart: She was seen in ER on 06/24/2023 with the complaints of back pain and hematuria. She denies urinary frequency and urgency at that time. She denies any history cigarette smoking. Patient states that her maternal grandmother had a history of breast cancer. She was referred to [facility] for irregular menses 09/30/2023: Plan:? Urodyanmics was discussed to be scheduled for further evaluation of her urinary symptoms. [facility] Medical History Irregular menstrual bleeding Normal pelvic exam Food allergy Annual physical exam delivery delivered Overweight Rhinitis, allergic Dysmenorrhea Surgical History (Updated 10/14/23 @ 08:54 by Yamila Denton CMA) H/O tubal ligation Family History Father No problems noted. Mother No problems noted. Social History Housing: House Patient Tobacco Use Status: Never used Tobacco e-Cigarette/Vaping Use: Never Used Current occupational status: employed Cognitive needs: No Hearing needs: No Vision needs: No Review of Systems Const All systems reviewed & are unremarkable except as noted in HPI and below Reports no additional complaints Eyes Reports no additional complaints ENT Reports no additional complaints Card Denies dyspnea Resp Denies cough and Denies dyspnea GI Reports no additional complaints Reports no additional complaints Musc Reports no additional complaints Skin/Breast Denies rash and Denies unusual bruising Neuro Reports no additional complaints Psych Reports no additional complaints Endo Reports no additional complaints Chris/Lymph Reports no additional complaints Aller/Immun Reports no additional complaints Office Procedures Cystoscopy Consent Discussed risk and benefit or proposed procedure with the patient. Information consent for procedure given to the patient. Discussed technical aspects, risks, benefits and alternatives in full. Addressed all of the patient's questions and concerns regarding the procedure. The patient demonstrated knowledge and understanding. They wish to proceed with this procedure. Preparation The patient was prepped in the usual manner. A construction plant operator was present and in the room. Genitalia was prepped with betadine solution in a sterile manner. Lidocaine Jelly 2% was placed into the urethra and 16Fr flexible Olympus cystoscope was inserted into the meatus after adequate lubrication. Procedure Time out per protocol performed. Bladder Inspection Bladder Inspection: The bladder was inspected in its entirety with utilization retroflexion displaying: Tumor(s): nonoe Trabeculation: N/A Mucosal Erthema: N/A Orifices: normal shape and position Urethra: normal Cystoscopy findings: WNL, no suspicious bladder lesions visualized [id number] DISPOSABLE SCOPE URO-G FLEXIBLE SCOPE Procedure code (CPT) selection complete Office Meds lidocaine HCl 2 % mucosal jelly in applicator Performing Provider: Teo Ro MD Performing Location: [facility] [place] [facility] Administered by: Krystal Spain RN on 09/30/23 11:23 Dose Route Admin Location Dispensed Lot Number Expiration Date [facility] Title Vehicle Service Attendant 10 mL intra-urethral 20 mL naproxen 500 mg tablet Performing Provider: Teo Ro MD Performing Location: [facility] [place] [facility] Administered by: Krystal Spain RN on 09/30/23 11:23 Dose Route Admin Location Dispensed Lot Number Expiration Date [facility] Title Vehicle Service Attendant 500 mg PO 1 tab ciprofloxacin HCl 500 mg tablet Performing Provider: Teo Ro MD Performing Location: [facility] [place] [facility] Administered by: Krystal Spain RN on 09/30/23 11:23 Dose Route Admin Location Dispensed Lot Number Expiration Date [facility] Title Vehicle Service Attendant 500 mg PO 1 tab Results AMB Urinalysis, Automated UA Leukoctes 0 Giovanni/uL Last Edit by JEANNE Carcamo on 09/30/23 11:24 UA Nitrite Negative Last Edit by JEANNE Carcamo on 09/30/23 11:24 UA Urobilinogen 0.2 mg/dL Last Edit by JEANNE Carcamo on 09/30/23 11:24 UA Protein 0 mg/dL Last Edit by JEANNE Carcamo on 09/30/23 11:24 UA pH 6.5 Last Edit by JEANNE Carcamo on 09/30/23 11:24 UA Blood 10 Richard/uL Last Edit by JEANNE Carcamo on 09/30/23 11:24 UA Specific [place] 1.015 Last Edit by JEANNE Carcamo on 09/30/23 11:24 UA Ketone Negative Last Edit by JEANNE Carcamo on 09/30/23 11:24 UA Bilirubin 0 mg/dL Last Edit by JEANNE Carcamo on 09/30/23 11:24 UA Glucose 0 mg/dL Last Edit by JEANNE Carcamo on 09/30/23 11:24 Results Reviewed Results Reviewed: Laboratory Last Values Urine pH (Auto) 6.5 09/30/23 11:23 Specific [place] (Auto) 1.015 09/30/23 11:23 Urine Protein (Auto) 0 mg/dL 09/30/23 11:23 Glucose (UA)(Auto) 0 mg/dL 09/30/23 11:23 Urine Ketones (Auto) Negative 09/30/23 11:23 Urine Blood (Auto) 10 Richard/uL 09/30/23 11:23 Urine Nitrite (Auto) Negative 09/30/23 11:23 Urine Bilirubin (Auto) 0 mg/dL 09/30/23 11:23 Urine Urobilinogen (Auto) 0.2 mg/dL 09/30/23 11:23 Leukocyte Esterase (Auto) 0 Giovanni/uL 09/30/23 11:23 Date of Service: 09/13/23 EXAMINATION:? US RETROPERITONEAL LIMITED (RENAL ONLY) CLINICAL INFORMATION: Hematuria, unspecified. COMPARISON: CT abdomen and pelvis with contrast 05/06/2020. FINDINGS: RIGHT KIDNEY: 11.2 x 4.7 x 6.2 cm (SAG x AP x TRV). The kidney is normal in size, contour, and echogenicity. Renal cortical thickness is normal. No calculi or focal parenchymal lesions. No hydronephrosis. LEFT KIDNEY: 11.8 x 5.6 x 5.4 cm (SAG x AP x TRV). The kidney is normal in size, contour, and echogenicity. Renal cortical thickness is normal. No calculi or focal parenchymal lesions. No hydronephrosis. IMPRESSION:? Unremarkable renal ultrasound. Assessment & Plan Assessment & Plan (1) Hematuria: Code(s): R31.9 - Hematuria, unspecified (2) Urge incontinence of urine: Code(s): N39.41 - Urge incontinence Plan Urodyanmics was discussed to be scheduled for further evaluation of her urinary symptoms. Orders: Orders US renal BI 09/13/23 R31.9 - Hematuria, unspecified AMB Cystoscopy 09/30/23 N39.41 - Urge incontinence, R31.9 - Hematuria, unspecified AMB Urinalysis Automated 09/30/23 Z13.9 - Encounter for screening, unspecified Patient Instructions: The patient had an opportunity to ask questions regarding treatment plan. All questions were answered. Imaging, Laboratory studies and physical exam results were discussed and reviewed in detail. No major barriers to understanding were identified. The patient expressed understanding and agreement with the above treatment plan. The patient is aware they should contact our office by phone for worsening of their current condition or the appearance of new symptoms. Compliance is encouraged with any medications and followup testing that is ordered. It is a privilege to be allowed the opportunity to participate in the urologic care of your patient. If you have any questions or concerns regarding treatment for the above conditions please do not hesitate to contact me. The office telephone contact is [phone]. This note is constructed in part using voice recognition software. While every effort has been made to ensure accuracy candy cooker helper errors may have been included. Yours sincerely, Teo Ro MD Coding Level of Care Code Procedure Only Diagnoses Hematuria R31.9 Urge incontinence of urine N39.41 CPT Codes Cystoscopy - CPT: 04752-[id number] ([id number])
== END 2023-09-30 12:02 | disposition home or self-care (01) ==
PROVIDERS: PCP Internal Medicine; Visit Provider Urology
DX: N39.41 Urge incontinence (principal); R31.9 Hematuria, unspecified; Z13.9 Encounter for screening, unspecified
CPT/HCPCS: 52000

== ENCOUNTER → 2023-09-30 10:13 | Outpatient (BNVA) | payer OTHER, SELFPAY | PROVIDERS: PCP Internal Medicine; Visit Provider Urology | DX: R31.9 Hematuria, unspecified (principal); N39.41 Urge incontinence | CPT/HCPCS: 52000; 81003 ==

== ENCOUNTER 2023-10-14 08:23 | Outpatient (AMB) | payer OTHER, SELFPAY ==
[2023-10-14 08:47] VITALS: BP 118/70; BMI 38.4
--- NOTE | 2023-10-14 08:47 | MHC.OFFVIS ---
Intake Vital Signs 10/14/23 08:47 Height 5 ft 7 in Weight 245 lb BMI 38.4 BP 118/70 Intake Visit Reasons: irreg menses/PCP referral, Tipple Tender examination Intake Note: c/o of heavy menses Flaring Machine Operator Required: No Information Interpreted: non-clinical & clinical Manager Medicare: Manager Medicare Present (Yamila ANGEL) Accompanied by: Self / Same As Patient Allergies milk Adverse Reaction (Mild, Verified 10/14/23 08:51) Rash Is last menstrual period known: Yes Last menstrual period: 09/12/23 HPI HPI Comments History of Present Illness Details Patient is here today for concerns regarding her menses changes over the last year. From 3 to 7 days. She denies any odor, itching. She reports sharp pelvic pain, midline over the months ago that occurs randomly. 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 History of blood seen in her urine, seen a Urologist 2 wks ago and was told everything looks good. History of abnormal paps (HPV), last pap 3 years ago at [facility], she reports last pap was normal. 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 Has a fairly healthy tries to stay active. Denies any family history of breast, ovarian or colon cancer. [facility] Medical History Irregular menstrual bleeding Normal pelvic exam Food allergy Annual physical exam delivery delivered Overweight Rhinitis, allergic Dysmenorrhea Surgical History (Updated 10/14/23 @ 08:54 by Yamila Denton CMA) H/O tubal ligation Family History Father No problems noted. Mother No problems noted. Social History Housing: House Patient Tobacco Use Status: Never used Tobacco e-Cigarette/Vaping Use: Never Used Current occupational status: employed Cognitive needs: No Hearing needs: No Vision needs: No Female Reproductive History Menstrual Date of last menstrual period: 09/12/23 control method: permanent sterilization Review of Systems Const All systems reviewed & are unremarkable except as noted in HPI and below Reports as per HPI Eyes Reports no additional complaints ENT Reports no additional complaints Card Reports no additional complaints Resp Reports no additional complaints GI Reports as per HPI and Reports no additional complaints Reports as per HPI Musc Reports no additional complaints Skin/Breast Reports as per HPI Neuro Reports no additional complaints Psych Reports no additional complaints Endo Reports no additional complaints Chris/Lymph Reports no additional complaints Aller/Immun Reports no additional complaints Physical Exam Vital Signs: Last Vital Signs BP 118/70 10/14/23 08:47 BMI result Body Mass Index 38.4 Const General: cooperative, healthy appearing, no acute distress, well developed and alert Orientation/consciousness: patient oriented x3 HEENT Head: Yes normal to inspection Eyes General: appearance normal, both eyes and all related structures Neck Neck: Yes normal visual inspection Thyroid: Thyroid normal Chest Chest palpation & inspection: normal inspection of the chest and other (no puckering, dimpling, peau de orange, retraction, discharge, masses) Breast/axilla inspection: normal inspection of the breasts Breast/axilla palpation: normal palpation of the breasts Resp Effort & Inspection: normal respiratory effort GI Inspection: Yes normal to inspection Palpation (GI): Soft to palpation Rectal Exam - Female: deferred General: Yes bladder normal to palpation External Female Exam: normal external appearance and normal appearance of the urethra Speculum Exam - Vagina: normal appearance of the vagina, normal palpation and normal vaginal discharge Speculum Exam - Cervix: normal appearance of the cervix, normal palpation and Other cervical findings present (Blood with Pap) Bimanual exam- vagina & uterus: normal bimanual exam, normal palpation, uterine size normal, bladder normal to palpation, normal palpation and non-tender Bimanual Exam- Adnexa, other: no masses Skin General skin exam: no rashes or lesions noted Rashes: no rashes Neuro General: patient oriented x3 Cognition (Neuro): normal cognition Extrem General: Yes normal to inspection Psych Attitude: cooperative Thought process: Normal thought process present Results AMB Test Urine AMB Test Urine Negative Last Edit by Yamila Denton CMA on 10/14/23 09:07 Results Reviewed Results Reviewed: Laboratory Last Values [facility]st Clinic Negative 10/14/23 09:07 Assessment & Plan Assessment & Plan (1) Abnormal uterine bleeding (AUB): Code(s): N93.9 - Abnormal uterine and vaginal bleeding, unspecified (2) Encounter for well woman exam with routine gynecological exam: Code(s): Z01.419 - Encounter for gynecological examination (general) (routine) without abnormal findings Plan Discussed: Current recommendations for pap smears per ASCCP guidelines. Breast awareness and periodic breast exams. Maintain a healthy lifestyle including a well balanced diet and routine exercise. Use condoms for STI and prevention. Workup for AUB, including ultrasound, lab work, endometrial biopsy. Preprocedure anticipatory guidance reviewed today including the use of OTC medication 1 hour prior to the procedure with food. All of her questions and concerns were addressed to the best of my ability. Follow-up appointments for ultrasound, EMB to be made today. RTO in one year for annual clerk telegraph service examination. Orders: Orders Bacterial Vaginosis Panel Today N92.6 - Irregular menstruation, unspecified AMB HCG Urine Test Today Z32.02 - Encounter for test, result negative US pelvic and transvaginal Today N93.9 - Abnormal uterine and vaginal bleeding, unspecified Pap Smear Today N92.6 - Irregular menstruation, unspecified CT NG by PCR Today N92.6 - Irregular menstruation, unspecified Complete Blood Count no Diff Today N92.6 - Irregular menstruation, unspecified Coding Level of Care Code New Pt Prev Care 18-39yr(71981 Diagnoses Abnormal uterine bleeding (AUB) N93.9 Encounter for well woman exam with routine gynecological exam Z01.419 Comment Additional coaching for complex patient: aub
== END 2023-10-14 09:23 | disposition home or self-care (01) ==
PROVIDERS: PCP Internal Medicine; Visit Provider Advanced Practice Midwife
DX: Z01.419 Encounter for gynecological examination (general) (routine) without abnormal findings (principal); N93.9 Abnormal uterine and vaginal bleeding, unspecified; Z32.02 Encounter for pregnancy test, result negative
CPT/HCPCS: 99385

== ENCOUNTER 2023-10-14 08:23 | Outpatient (REF) | payer OTHER, SELFPAY ==
[2023-10-21 03:48] LABS: HPV mRNA E6/E7 rflx Not Detected (Not Detected)
== END 2023-10-14 08:24 | disposition home or self-care (01) ==
LOC: HO.LNP 08:23
PROVIDERS: PCP Internal Medicine; Visit Provider Advanced Practice Midwife
DX: Z01.419 Encounter for gynecological examination (general) (routine) without abnormal findings (principal); N92.6 Irregular menstruation, unspecified; N93.9 Abnormal uterine and vaginal bleeding, unspecified; R10.2 Pelvic and perineal pain; Z32.02 Encounter for pregnancy test, result negative
CPT/HCPCS: 81025; 87624; 88142; 99385

== ENCOUNTER 2023-10-14 09:45 | Outpatient (REF) | payer OTHER, SELFPAY ==
[2023-10-14 10:56] LABS: Hematocrit 35.2 % (37.0-47.0); Hemoglobin 11.1 g/dl (12.0-16.0); Mean Corpuscular HGB Conc 31.5 g/dl (31.0-35.0); Mean Corpuscular Volume 85.6 fL (80.0-98.0); Mean Platelet Volume 8.8 fL (9.4-12.3); Platelet Count 339 X10*3/uL (160-400); Red Blood Count 4.11 X10*6/uL (4.20-5.50); Red Cell Distribution Width 13.2 % (11.0-16.0); White Blood Count 5.2 X10*3/uL (4.8-10.8)
[2023-10-14 13:16] LABS: CT PCR NOT DETECTED (Not Detect.); NG PCR NOT DETECTED (Not Detect.)
[2023-10-14 13:46] LABS: BV Int Neg Control Negative (Negative); BV Int Pos Control Positive (Positive)
== END 2023-10-14 09:46 | disposition home or self-care (01) ==
LOC: HO.LAB 09:45
PROVIDERS: PCP Internal Medicine; Visit Provider Advanced Practice Midwife
DX: N92.6 Irregular menstruation, unspecified (principal); N93.9 Abnormal uterine and vaginal bleeding, unspecified
CPT/HCPCS: 0353U; 85027; 87480; 87510; 87660

== ENCOUNTER 2023-12-30 13:02 | Outpatient (REF) | payer OTHER, SELFPAY ==
--- NOTE | ~2023-12-30 | US_ITS ---
EXAMINATION: US PELVIS CLINICAL INFORMATION: Abnormal uterine and vaginal bleeding, unspecified COMPARISON: CT scan abdomen and pelvis 05/06/2020 TECHNIQUE: Ultrasound of the pelvis is performed using both transabdominal and transvaginal transducers along with Doppler. Transvaginal imaging is performed due to inadequate visualization transabdominally. FINDINGS: Uterus: The uterus is anteverted and retroflexed and measures 8.8 x 4.1 x 5.4 cm. The endometrial thickness is 1.1 cm. The uterus is smooth in contour and has normal myometrial echogenicity. No visible fibroid. Adnexa: Both ovaries are visualized. There is normal color flow to the adnexa. There is no ovarian torsion. Right ovary measures 2.6 x 3.1 x 2.5 cm. Volume 10.6 mL. 1.8 x 2.0 x 1.7 cm complex cyst is of doubtful clinical significance. Left ovary measures 3.5 x 2.5 x 2.1 cm. Volume 8.9 mL. 2.1 x 1.8 x 1.6 cm complex cyst is seen. There is a small amount of fluid. US/US pelvic and transvaginal IMPRESSION: 1. Normal uterus. 2. 2.1 cm complex left ovarian cyst. Follow-up ultrasound in 4-6 weeks after the patient's next menses could be obtained for further evaluation. 3. 2.0 cm complex right ovarian cyst is of doubtful clinical significance based on size.
== END 2023-12-30 13:03 | disposition home or self-care (01) ==
LOC: HO.US 13:02
PROVIDERS: PCP Internal Medicine; Visit Provider Advanced Practice Midwife
DX: N93.9 Abnormal uterine and vaginal bleeding, unspecified (principal)
CPT/HCPCS: 76830; 76856

== ENCOUNTER 2024-01-04 11:47 | Outpatient (AMB) | payer OTHER, SELFPAY ==
--- NOTE | 2024-01-04 11:48 | MHC.OFFVIS ---
Intake Vital Signs 01/04/24 11:49 Height 5 ft 7 in Weight 245 lb BMI 38.4 BP 120/80 Intake Visit Reasons: Ultra sound follow up Rv Mechanic: Rv Mechanic Present Allergies milk Adverse Reaction (Mild, Verified 01/04/24 11:49) Rash Is last menstrual period known: Yes HPI HPI Comments History of Present Illness Details Patient is here for an ultrasound follow-up. Last visit she reported heavier and longer menses, and had experienced some midline pelvic pain. Menses x 7d, heavy 3/7d. Occasional midline pain. No discharge or odor. Currently not interested in doing any control she tried that many years ago at [facility] for prior ovarian cyst. [facility] Medical History Irregular menstrual bleeding Normal pelvic exam Food allergy Annual physical exam delivery delivered Overweight Rhinitis, allergic Dysmenorrhea Surgical History (Updated 10/14/23 @ 08:54 by Yamila Denton CMA) H/O tubal ligation Family History Father No problems noted. Mother No problems noted. Social History Housing: House Patient Tobacco Use Status: Never used Tobacco e-Cigarette/Vaping Use: Never Used Current occupational status: employed Cognitive needs: No Hearing needs: No Vision needs: No Review of Systems Const All systems reviewed & are unremarkable except as noted in HPI and below Endo Reports no additional complaints Physical Exam Vital Signs: Last Vital Signs BP 120/80 01/04/24 11:49 BMI result Body Mass Index 38.4 Const General: cooperative, healthy appearing and no acute distress Psych Appearance: well kempt Attitude: cooperative Thought process: Normal thought process present Results Reviewed Results Reviewed: [address] [address] Ultrasound Report Signed Patient: Kassi Louise MR#: [id number] : 1990 Acct:[id number] Age/Sex: 33 / F ADM Date: 12/30/23 Loc: HO.US Attending Dr: Sravanthi Stuart CNM Ordering Physician: Sravanthi Stuart CNM Date of Service: 12/30/23 Procedure(s): US pelvic and transvaginal Accession Number(s): [id number] cc: Rachelle Rodriguez MD; Sravanthi Stuart CNM~ EXAMINATION: US PELVIS CLINICAL INFORMATION: Abnormal uterine and vaginal bleeding, unspecified COMPARISON: CT scan abdomen and pelvis 05/06/2020 TECHNIQUE: Ultrasound of the pelvis is performed using both transabdominal and transvaginal transducers along with Doppler. Transvaginal imaging is performed due to inadequate visualization transabdominally. FINDINGS: Uterus: The uterus is anteverted and retroflexed and measures 8.8 x 4.1 x 5.4 cm. The endometrial thickness is 1.1 cm. The uterus is smooth in contour and has normal myometrial echogenicity. No visible fibroid. Adnexa: Both ovaries are visualized. There is normal color flow to the adnexa. There is no ovarian torsion. Right ovary measures 2.6 x 3.1 x 2.5 cm. Volume 10.6 mL. 1.8 x 2.0 x 1.7 cm complex cyst is of doubtful clinical significance. Left ovary measures 3.5 x 2.5 x 2.1 cm. Volume 8.9 mL. 2.1 x 1.8 x 1.6 cm complex cyst is seen. There is a small amount of fluid. US/US pelvic and transvaginal IMPRESSION: 1. Normal uterus. 2. 2.1 cm complex left ovarian cyst. Follow-up ultrasound in 4-6 weeks after the patient's next menses could be obtained for further evaluation. 3. 2.0 cm complex right ovarian cyst is of doubtful clinical significance based on size. Dictated By: Vijaya Herron MD Signed By: <Electronically signed by Vijaya Herron MD in OV> 01/02/24 1207 DD/ 1336 TD/TT: Torque Tester: Assessment & Plan Assessment & Plan (1) Complex cyst of both ovaries: Code(s): N83.291 - Other ovarian cyst, right side; N83.292 - Other ovarian cyst, left side Plan Discussed ultrasound findings Counseled regarding findings of: Complex ovarian cyst, which is often benign, and most resolve on their own overtime. Some develop into premalignant or malignant tumors. Further monitoring and evaluation is recommended with US, possible CT, or MRI study. If persists, or is indicated (Ca-125, Carbohydrate Antigen 19-9, & Carcinoembryonic Antigen) labs will be ordered and referral to [facility] or general gynecology for MD care if indicated for possible surgical consult. Follow up in person for test results. Discussed vwto-skc-eoytgei self-help medications Tylenol or ibuprofen as directed with food p.r.n. for discomfort amd may also consider use of a heating pad if needed. If any significant pain to go to the emergency room for immediate evaluation. All of her questions and concerns were addressed to the best of my ability and shared decision making. She is agreeable to the plan of care. This note is constructed using voice recognition software. While every effort has been made to ensure accuracy, universal branch consultant errors may have been included. Orders: Orders US pelvic and transvaginal 8 Weeks N83.291 - Other ovarian cyst, right side, N83.292 - Other ovarian cyst, left side Coding Level of Care Code Est Pt Level 3 (17973) Diagnoses Complex cyst of both ovaries N83.291; N83.292
[2024-01-04 11:49] VITALS: BP 120/80; BMI 38.4
== END 2024-01-04 12:06 | disposition home or self-care (01) ==
LOC: HO.HWS 11:47
PROVIDERS: PCP Internal Medicine; Visit Provider Advanced Practice Midwife
DX: N83.291 Other ovarian cyst, right side (principal); N83.292 Other ovarian cyst, left side
CPT/HCPCS: 99213

== ENCOUNTER → 2024-01-04 11:47 | Outpatient (BNVA) | payer OTHER, SELFPAY | PROVIDERS: PCP Internal Medicine; Visit Provider Advanced Practice Midwife | DX: N83.291 Other ovarian cyst, right side (principal); N83.292 Other ovarian cyst, left side | CPT/HCPCS: 99212 ==

== ENCOUNTER 2024-01-20 14:27 | Outpatient (REF) | payer OTHER, SELFPAY ==
[2024-01-20 15:32] LABS: Appearance Urine Clear; Color Urine Yellow; Glucose Urine UA Negative (Negative); Leukocyte Esterase Urine Negative (Negative); Nitrite Urine Negative (Negative); PH 6.5 (5.0-9.0); Specific Gravity - Urine 1.025 (1.005-1.025); UMIC TRIGGER UA YES; Urine Blood Moderate (2+) (Negative); Urine Ketones Negative (Negative); Urine Protein Trace mg/dL (Neg-Trace)
[2024-01-20 15:34] LABS: Bacteria Urine None Seen (None Seen); Hyaline Casts Urine 0-2 /LPF (0-2); Squamous Epithelial Cell Urine 0-2 /HPF (0-2); WBC Urine 0-5 /HPF (0-5)
== END 2024-01-20 14:28 | disposition home or self-care (01) ==
LOC: HO.LAB 14:27
PROVIDERS: Visit Provider Urology
DX: N39.41 Urge incontinence (principal); R31.9 Hematuria, unspecified
CPT/HCPCS: 81001; 87086; 87088; 87186

== ENCOUNTER 2024-01-27 08:44 | Outpatient (AMB) | payer OTHER, SELFPAY ==
--- NOTE | 2024-01-27 09:32 | A.OFFVIS_ITS ---
Intake Intake Visit Reasons: Urodynamics Intake Note: Patient presents today for a URODYNAMIC Procedure: Meds: None Allergies to Antibiotic: No Known Allergies Blood Thinner: None Yardage Estimator Required: No Accompanied by: Self / Same As Patient Allergies milk Adverse Reaction (Mild, Verified 02/06/24 10:30) Rash HPI HPI Comments History of Present Illness Details Kassi is a 33 year old female with symptoms of urinary incontinence. She states that she leaks with coughing or lifting as well as if she gets an urge she may leak before getting to the bathroom. She drinks 5-6 16 oz bottles of water throughout the day to keep hydrated. She states that when she leaks it is a gush. She does not wear pads but she will bring extra clothes to work with her. CMG parameters detailed below. Interpretation: During the filling phase there was normal sensation. Sensory urgency was not present. Detrusor overactivity was not observed. Leakage was observed during cough and valsalva at 225 mL and 315 mL. Bladder capacity was within the average range. The patient felt that she was at capacity at 592 mL She voided 150 mL with the urethral and rectal catheter in place. The urethral catheter was removed leaving the rectal catheter in place and she was not able to void anymore of the fluid in the bladder. After removing both urethral catheters. The patient voided in the bathroom 500 mL EMG- Appropriate changes in the waveforms were noted through out the study. I have discussed treatment options for stress urinary incontinence with intrinsic sphincter deficiency to include bulkamid, urethral bulking agent versus sling procedure. I have discussed that bulk Ahmed is a safe and effective treatment with 92 % of women reporting being cured or improved. Discussed that urethral bulking is performed with a needle with cystoscopic visualization. Discussed risks to include infection bleeding urinary retention. 20 minutes spent in review of records pe rtaining to this visit and including [id number] discussion with the patient regarding testing results and treatment options and documentation of this visit. [facility] Medical History (Updated 02/14/24 @ 09:08 by Teo Ro MD) Irregular menstrual bleeding Normal pelvic exam Food allergy Annual physical exam delivery delivered Overweight Rhinitis, allergic Dysmenorrhea Surgical History H/O tubal ligation Family History Father No problems noted. Mother No problems noted. Social History Housing: House Patient Tobacco Use Status: Never used Tobacco e-Cigarette/Vaping Use: Never Used service: No Current occupational status: employed Cognitive needs: No Hearing needs: No Vision needs: No Review of Systems Const All systems reviewed & are unremarkable except as noted in HPI and below Reports no additional complaints Eyes Reports no additional complaints ENT Reports no additional complaints Card Reports no additional complaints Resp Reports no additional complaints GI Reports no additional complaints Reports as per HPI Musc Reports no additional complaints Skin/Breast Reports system reviewed and no additional complaints, except as documented Neuro Reports no additional complaints Psych Reports no additional complaints Endo Reports no additional complaints Chris/Lymph Reports no additional complaints Aller/Immun Reports no additional complaints Physical Exam Const General: cooperative, healthy appearing and no acute distress Nutritional Appearance: overweight Orientation/consciousness: patient oriented x3 HEENT Head: Yes normal to inspection, Yes normocephalic and Yes atraumatic Eyes Conjunctivae: conjunctivae normal Neck Neck: Yes normal visual inspection and Yes trachea midline Chest Chest palpation & inspection: normal inspection of the chest Resp Effort & Inspection: normal respiratory effort Cardio Rate: regular rate GI Inspection: Yes normal to inspection Palpation (GI): Soft to palpation General: No no CVA tenderness External Female Exam: normal external appearance Back/Spine/Pelvis Back: No no CVA tenderness Skin General skin exam: no rashes or lesions noted Neuro General: patient oriented x3 Extrem General: No edema Psych Appearance: grossly normal Office Procedures Urodynamic Studies Consent Discussed risk and benefit or proposed procedure with the patient. Information consent for procedure given to the patient. Discussed technical aspects, risks, benefits and alternatives in full. Addressed all of the patient's questions and concerns regarding the procedure. The patient demonstrated knowledge and understanding. They wish to proceed with this procedure. Preparation The patient was prepped in the usual manner. A flare stitcher was present and in the room. Genitalia was prepped with betadine solution in a sterile manner. Procedure Complex Uroflow Complex uroflow performed by: Teo Ro Maximum urinary flow rate (mL/second): 5.8 mL/s Voiding time (seconds): 6.7 sec Voided volume (mL): 45 Residual urine (mL): 13 mL Cystometrogram Vaginal/rectal catheter type: rectal First desire at (mL): 183 mL Strong desire to void occured at (mL): 490 mL Strong desire detrussor pressure (cm H2O): 7.1 Maximum fill (mL): 592 mL Voided with max detrussor pressure of (cm H2O): 23 Maximum flow rate (mL/second): 8.8 mL/s Prep: The patient was prepped in the usual manner. A flare stitcher was present and in the room. Genitalia was prepped with betadine solution in a sterile manner. 92538-Vxwutpufmhenbs w/ STUDIO HAND 55293-Tyemkop-Ayyvjpbnvjel First 47308-Gokz/Urinary Muscle Study 45806-Aeigi-Iaovilrgo Pressure Test Procedure code (CPT) selection complete Assessment & Plan Assessment & Plan (1) Intrinsic sphincter deficiency (ISD): Code(s): N36.42 - Intrinsic sphincter deficiency (ISD) (2) RUBIA (stress urinary incontinence, female): Code(s): N39.3 - Stress incontinence (female) (male) Plan Schedule bulkamid, urethral bulking agent for intrinsic sphincter deficiency Orders: Orders AMB Urodynamics Studies 01/27/24 N39.41 - Urge incontinence Patient Instructions: The patient had an opportunity to ask questions regarding treatment plan. All questions were answered. The patient expressed understanding and agreement with the above treatment plan. The patient is aware they should contact our office by phone for worsening of their current condition or the appearance of new symptoms. Compliance is encouraged with any medications and followup testing that is ordered. It is a privilege to be allowed the opportunity to participate in the urologic care of your patient. If you have any questions or concerns regarding treatment for the above conditions please do not hesitate to contact me. The office telephone contact is [phone]. This note is constructed in part using voice recognition software. While every effort has been made to ensure accuracy polysom tech errors may have been included. Yours sincerely, Teo Ro MD Coding Level of Care Code Est Pt Level 3 (55555) Diagnoses Intrinsic sphincter deficiency (ISD) N36.42 RUBIA (stress urinary incontinence, female) N39.3 CPT Codes Urodynamic Studies - CPT: 16982-Bbxkjidhovrvmy w/ STUDIO HAND ([id number]) Urodynamic Studies - CPT: 13495-Llyhrzm-Vxagtgjjmhwh First ([id number]) Urodynamic Studies - CPT: 43828-Exrs/Urinary Muscle Study ([id number]) Urodynamic Studies - CPT: 74539-Vrocf-Tlmobqneu Pressure Test ([id number])
== END 2024-01-27 11:22 | disposition home or self-care (01) ==
PROVIDERS: PCP Internal Medicine; Visit Provider Urology
DX: N36.42 Intrinsic sphincter deficiency (ISD) (principal); N39.3 Stress incontinence (female) (male)
CPT/HCPCS: 51728; 51741; 51784; 51797; 99213

== ENCOUNTER → 2024-01-27 08:44 | Outpatient (BNVA) | payer OTHER, SELFPAY | PROVIDERS: PCP Internal Medicine; Visit Provider Urology | DX: N36.42 Intrinsic sphincter deficiency (ISD) (principal); N39.3 Stress incontinence (female) (male); N39.41 Urge incontinence | CPT/HCPCS: 51728; 51741; 51784; 51797; 99212 ==

== ENCOUNTER 2024-02-06 10:09 | Outpatient (AMB) | payer OTHER, SELFPAY ==
[2024-02-06 10:25] VITALS: BP 108/70; PULSE 81; O2SAT 98; BMI 38.4
--- NOTE | 2024-02-06 10:25 | A.OFFPC_ITS ---
Vital Signs 02/06/24 10:25 Height 5 ft 7 in Weight 245 lb BMI 38.4 BP 108/70 Blood Pressure Location Lt brachial Position Sitting Pulse 81 Pulse Source Pulse Oximeter Pulse Oximetry (%) 98 Oxygen Delivery Method Room Air Intake Visit Reasons: Annual PE Intake Note: Pt is here today for PE. Allergies milk Adverse Reaction (Mild, Verified 02/06/24 10:30) Rash Medication List - Last Reconciled 02/06/24 by Rachelle Rodriguez MD cetirizine (Zyrtec) 10 mg PO DAILY ibuprofen 600 mg PO Q6H PRN Tobacco use date assessed: 02/06/24 Dental Screening Dental Screen Date: 02/06/24 Did you have a dental visit in the last 12 months?: Yes Did you have a dental problem in the last 6 months where you did not have access to dental care?: No Was dental information given to patient?: Patient has dentist HPI Annual PE HPI Details Pt presents for PE. COUNT INCLUDES THE [facility] Medical History (Updated 02/06/24 @ 10:56 by Rachelle Rodriguez MD) Irregular menstrual bleeding Normal pelvic exam Food allergy Annual physical exam delivery delivered Overweight Rhinitis, allergic Dysmenorrhea Surgical History H/O tubal ligation Family History Father No problems noted. Mother No problems noted. Social History Housing: House Patient Tobacco Use Status: Never used Tobacco e-Cigarette/Vaping Use: Never Used service: No Current occupational status: employed Cognitive needs: No Hearing needs: No Vision needs: No Questionnaire PHQ-9 Over the last 2 weeks, how often have you been bothered by any of the following problems? 1. Little interest or pleasure in doing things: not at all 2. Feeling down, depressed, or hopeless: not at all 3. Trouble falling or staying asleep, or sleeping too much: not at all 4. Feeling tired or having little energy: not at all 5. Poor appetite or overeating: not at all 6. Feeling bad about yourself - or that you are a failure or have let yourself or your family down: not at all 7. Trouble concentrating on things, such as reading the newspaper or watching television: not at all 8. Moving or speaking so slowly that other people could have noticed. Or the opposite - being so fidgety or restless that you have been moving around a lot more than usual: not at all 9. Thoughts that you would be better off or of hurting yourself in some way: not at all Total score: 0 Depression Screening Interpretation: Negative Depression Screening Done: Yes Source: Developed by Drs. Gennaro Pearson, Lorraine Godfrey, Suresh Chavez and colleagues, with an educational isacc from [employer]. Thrive Questionnaire Date Thrive assessed: 02/06/24 I am a: Patient What is your living situation today?: I have a steady place to live Within the past 12 months, did the food you bought not last and you didn't have the money to get more?: Never true Within the past 12 months, did you worry whether your food would run out before you got money to buy more?: Never true Do you have trouble paying for medicines?: No Do you have trouble getting transportation to medical appointments?: No Do you have trouble paying your heating and electricity bill?: No Do you have trouble taking care of your child, family member or friend?: No Do you have trouble with day-to-day activities such as bathing, preparing meals, shopping, managing finances, etc.?: No Are you currently unemployed and looking for a job?: No Are you interested in more education?: No Please select the resources that you would like help with: None THRIVE Score: 0 AUDIT C Alcohol Use Questionnaire (AUDIT-C) 1. How often do you have a drink containing alcohol?: Monthly or less 2. How many drinks containing alcohol do you have on a typical day when you are drinking?: 1 or 2 3. How often do you have six or more drinks on one occasion?: Never Total Score: 1 RADHA-7 AMB Questionnaire RADHA-7 Date RADHA - 7 assessed: 02/06/24 Feeling nervous, anxious, or on edge: 0 = Not at all Not being able to stop or control worryin = Several days Worrying too much about different things: 1 = Several days Trouble relaxin = Several days Being so restless that it is hard to sit still: 0 = Not at all Becoming easily annoyed or irritable: 1 = Several days Feeling afraid as if something awful might happen: 0 = Not at all Total RADHA-7 score (0-4 normal; 5-9 mild; 10-14 moderate; 15-21 severe): 4 Source: Developed by Drs. Gennaro Pearson, Lorraine Godfrey, Suresh Chavez and colleagues, with an educational isacc from [employer]. Review of Systems Const All systems reviewed & are unremarkable except as noted in HPI and below Reports no additional complaints Eyes Reports no additional complaints ENT Reports no additional complaints Card Reports no additional complaints Resp Reports no additional complaints GI Reports no additional complaints Reports no additional complaints Physical exam (Primary Care) Vital Signs: Last Vital Signs Pulse 81 02/06/24 10:25 BP 108/70 02/06/24 10:25 Pulse Ox 98 02/06/24 10:25 Oxygen Delivery Method Room Air 02/06/24 10:25 BMI result Body Mass Index 38.4 Tobacco/Smoking Status: Tobacco use Status Tobacco use date assessed 02/06/24 02/06/24 10:34 Patient Tobacco Use Status Never used Tobacco 02/06/24 10:34 e-Cigarette/Vaping Use Never Used 02/06/24 10:26 PHQ-9: PHQ-9 Score PHQ-9: Total score 0 02/06/24 10:37 Depression Screening Interpretation: Negative Thrive Assessment: Date of Thrive Assessment Date Thrive assessed 02/06/24 02/06/24 10:37 Const General: no acute distress HENMT Head: Yes normal to inspection Mouth: Normal oral and palatal mucosa present Eyes General: appearance normal, both eyes and all related structures Neck Neck: Yes no lymphadenopathy and Yes supple Resp Effort & Inspection: normal respiratory effort Auscultation: clear to auscultation bilaterally Cardio Rhythm: regular rhythm Heart sounds: S1 normal heart sound present and S2 normal heart sound present GI Inspection: Yes normal to inspection Palpation (GI): Soft to palpation Percussion: Yes normal to percussion Auscultation: normal bowel sounds Assessment and Plan Assessment & Plan (1) Annual physical exam: Code(s): Z00.00 - Encounter for general adult medical examination without abnormal findings Plan: WELL-BALANCED DIET REGULAR EXERCISE DISCUSSED WITH THE PATIENT SHE WILL RETURN FOR FASTING BLOOD WORK (2) Normal pelvic exam: 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 Code(s): Z01.419 - Encounter for gynecological examination (general) (routine) without abnormal findings (3) Irregular menstrual bleeding: Code(s): N92.6 - Irregular menstruation, unspecified Orders: Orders Lipid Panel Today N92.6 - Irregular menstruation, unspecified, Z00.00 - Encounter for general adult medical examination without abnormal findings, Z01.419 - Encounter for gynecological examination (general) (routine) without abnormal findings Vitamin B12 and Folate Today N92.6 - Irregular menstruation, unspecified, Z00.00 - Encounter for general adult medical examination without abnormal findings, Z01.419 - Encounter for gynecological examination (general) (routine) without abnormal findings Comprehensive [place]. Panel Fast Today N92.6 - Irregular menstruation, unspecified, Z00.00 - Encounter for general adult medical examination without abnormal findings, Z01.419 - Encounter for gynecological examination (general) (routine) without abnormal findings Complete Blood Count Auto Diff Today N92.6 - Irregular menstruation, unspecified, Z00.00 - Encounter for general adult medical examination without abnormal findings, Z01.419 - Encounter for gynecological examination (general) (routine) without abnormal findings IRON PROFILE Today N92.6 - Irregular menstruation, unspecified, Z00.00 - Encounter for general adult medical examination without abnormal findings, Z01.419 - Encounter for gynecological examination (general) (routine) without abnormal findings UA w Microscopic Today N92.6 - Irregular menstruation, unspecified, Z00.00 - Encounter for general adult medical examination without abnormal findings, Z01.419 - Encounter for gynecological examination (general) (routine) without abnormal findings Coding Level of Care Code Est Pt Prev Care 18-39y(21774) Diagnoses Annual physical exam Z00.00 Normal pelvic exam Z01.419 Irregular menstrual bleeding N92.6
== END 2024-02-06 10:59 | disposition home or self-care (01) ==
PROVIDERS: PCP Internal Medicine; Visit Provider Internal Medicine
DX: Z00.00 Encounter for general adult medical examination without abnormal findings (principal); Z01.419 Encounter for gynecological examination (general) (routine) without abnormal findings; N92.6 Irregular menstruation, unspecified
CPT/HCPCS: 99395

== ENCOUNTER 2024-02-18 11:34 | Outpatient (REF) | payer OTHER, SELFPAY ==
[2024-02-18 13:53] LABS: MANUAL DIFF FLAG NO
[2024-02-18 13:59] LABS: Basophils Percent Auto 0.3 % (0-2); Eosinophils Absolute Auto 0.2 X10*3/uL (0.0-0.4); Eosinophils Percent Auto 2.8 % (0-4); Hematocrit 35.6 % (37.0-47.0); Hemoglobin 11.1 g/dl (12.0-16.0); Imm Gran Abs Auto 0.01 X10*3/uL (0.00-0.03); Imm Gran Pct Auto 0.2 % (0.0-0.4); Lymphocytes Percent Auto 34.2 % (20-40); Mean Corpuscular HGB Conc 31.2 g/dl (31.0-35.0); Mean Corpuscular Hemoglobin 26.2 pg (27.0-33.0); Mean Corpuscular Volume 84.2 fL (80.0-98.0); Mean Platelet Volume 8.9 fL (9.4-12.3); Monocytes Absolute Auto 0.5 X10*3/uL (0.1-1.2); Monocytes Percent Auto 8.2 % (2-11); Neutrophils Absolute Auto 3.1 x10*3/uL (2.0-8.3); Neutrophils Percent Auto 54.3 % (45-73); Platelet Count 390 X10*3/uL (160-400); Red Blood Count 4.23 X10*6/uL (4.20-5.50); Red Cell Distribution Width 13.3 % (11.0-16.0); White Blood Count 5.7 X10*3/uL (4.8-10.8)
[2024-02-18 14:00] LABS: Appearance Urine Clear; Color Urine Yellow; Glucose Urine UA Negative (Negative); Leukocyte Esterase Urine Trace (Negative); Nitrite Urine Negative (Negative); Specific Gravity - Urine 1.025 (1.005-1.025); UMIC TRIGGER UA YES; Urine Blood Large (3+) (Negative); Urine Ketones Negative (Negative); Urine Protein 30 (1+) mg/dL (Neg-Trace)
[2024-02-18 14:02] LABS: Bacteria Urine None Seen (None Seen); Hyaline Casts Urine 0-2 /LPF (0-2); RBC Urine >20 /HPF (0-2); WBC Urine 0-5 /HPF (0-5)
[2024-02-18 14:20] LABS: Alanine Aminotransferase 48 U/L (0-31); Albumin Level 3.9 g/dL (3.5-5.0); Alkaline Phosphatase 116 U/L (39-117); Anion Gap 11 (12-20); Aspartate Amino Transferase 42 U/L (5-31); Bilirubin Total 0.4 mg/dL (0.0-1.0); Blood Urea Nitrogen 10 mg/dL (9-16); Calcium 9.2 mg/dL (8.4-10.2); Carbon Dioxide 24 mmol/L (22-29); Chloride 110 mmol/L (96-108); Cholesterol 196 mg/dL (<200); Estimated Glomerular Filt Rate > 60; Glucose Fasting 87 mg/dL (60-99); HDL Cholesterol 44 mg/dL (>40); Iron 57 mcg/dL (30-160); LDL Cholesterol Calculated 138 mg/dL (<100); Percent Iron Saturation 15 % (15-50); Potassium 3.7 mmol/L (3.3-5.1); Sodium 141 mmol/L (135-145); Total Iron Binding Capacity 378 mcg/dL (228-428); Total Protein 8.2 g/dL (6.5-8.0); Triglycerides 72 mg/dL (<150); Unsaturated Iron Binding 321 ug/dL
[2024-02-19 00:16] LABS: Folate 8.8 ng/mL (> or = 4.0); Vitamin B12 385 pg/mL (200-900)
== END 2024-02-18 11:35 | disposition home or self-care (01) ==
LOC: HO.HMGCLDS 11:34
PROVIDERS: PCP Internal Medicine; Visit Provider Internal Medicine
DX: Z00.00 Encounter for general adult medical examination without abnormal findings (principal); N92.6 Irregular menstruation, unspecified; Z12.4 Encounter for screening for malignant neoplasm of cervix
CPT/HCPCS: 36415; 80053; 80061; 81001; 82607; 82746; 83540; 85025

== ENCOUNTER 2024-02-29 11:04 | Outpatient (REF) | payer OTHER, SELFPAY ==
--- NOTE | ~2024-02-29 | US_ITS ---
EXAMINATION: US PELVIS CLINICAL INFORMATION: Abnormal uterine bleeding, last menstrual period 2 weeks ago. Patient denies pain. Last menstrual period January 06, 2024. COMPARISON: None available. TECHNIQUE: Ultrasound of the pelvis is performed using both transabdominal and transvaginal transducers along with Doppler. Transvaginal imaging is performed due to inadequate visualization transabdominally. FINDINGS: The uterus is anteverted and retroflexed and measures 8.8 x 4.1 x 5.4 cm. Small amount of fluid in the pelvis. Limited visualization due to bowel gas and body habitus. Double wall endometrial thickness is difficult to confirm due to limited visualization and measures up to 9-11 mm on some images with a double endometrium thickness of 6 mm with small amount of fluid on other images. Visualization limited due to uterine positioning, body habitus and bowel gas. Left ovary measures 3.5 x 2.5 x 2.1 cm. A 2.6 x 2.9 x 2.2 cm complex left ovarian cyst with multiple septations and low-level internal echoes is difficult to fully characterize due to limited visualization. Right ovary measures 2.6 x 3.1 x 2.5 cm, volume 10.6 mL. Right ovarian 1.8 x 2.0 x 1.7 cm mildly complex right ovarian cyst with thin septations and a few low level internal echoes is difficult to fully characterize due to limited visualization. US/US pelvic and transvaginal IMPRESSION: 1. Double wall endometrial thickness is difficult to confirm due to limited visualization and measures up to 9-11 mm on some images with a double endometrium thickness of 6 mm with small amount of fluid within the endometrial cavity on other images. Visualization limited due to uterine positioning, body habitus and bowel gas. 2. Bilateral complex ovarian cysts are difficult to fully characterize due to limited visualization. Recommend follow up ultrasound in 6-8 weeks.
== END 2024-02-29 11:05 | disposition home or self-care (01) ==
LOC: HO.US 11:04
PROVIDERS: PCP Internal Medicine; Visit Provider Advanced Practice Midwife
DX: N83.291 Other ovarian cyst, right side (principal); N83.292 Other ovarian cyst, left side
CPT/HCPCS: 76830; 76856

== ENCOUNTER 2024-03-14 15:07 | Outpatient (AMB) | payer OTHER, SELFPAY ==
[2024-03-14 15:21] VITALS: BP 114/74; BMI 38.4
--- NOTE | 2024-03-14 15:21 | MHC.OFFVIS ---
Vital Signs 03/14/24 15:21 Height 5 ft 7 in Weight 245 lb BMI 38.4 BP 114/74 Intake Visit Reasons: Ultra sound follow up Sustainable Development Policy Analyst Required: No Rn Bone Marrow Transplant: Rn Bone Marrow Transplant Present Allergies milk Adverse Reaction (Mild, Verified 03/14/24 15:22) Rash Is last menstrual period known: Yes Last menstrual period: 03/07/24 Post menopausal: No HPI Comments Details: Patient is here today for a follow up ultrasound results history of prior complex ovarian cysts, heavier and longer menses, and occasional pain in midline pelvis area noted. HMB x4/7d. She reports she had a workup about 10 years ago at [facility] and was told that she had a potential to develop endometrial cancer. [facility] Medical History Irregular menstrual bleeding Normal pelvic exam Food allergy Annual physical exam delivery delivered Overweight Rhinitis, allergic Dysmenorrhea Surgical History H/O tubal ligation Family History Father No problems noted. Mother No problems noted. Social History Housing: House Patient Tobacco Use Status: Never used Tobacco e-Cigarette/Vaping Use: Never Used service: No Current occupational status: employed Cognitive needs: No Hearing needs: No Vision needs: No Female Reproductive History Menstrual Date of last menstrual period: 03/07/24 control method: permanent sterilization Date of last pap smear: 10/14/23 (negative) Review of Systems Const All systems reviewed & are unremarkable except as noted in HPI and below Endo Reports no additional complaints Physical Exam Vital Signs: Last Vital Signs BP 114/74 03/14/24 15:21 BMI result Body Mass Index 38.4 Const General: cooperative, healthy appearing and no acute distress Psych Appearance: well kempt Attitude: cooperative Thought process: Normal thought process present Results Reviewed Results Reviewed: [address] [address] Ultrasound Report Signed Patient: Kassi Louise MR#: [id number] : 1990 Acct:[id number] Age/Sex: 33 / F ADM Date: 02/29/24 Loc: HO.US Attending Dr: Sravanthi Stuart CNM Ordering Physician: Sravanthi Stuart CNM Date of Service: 02/29/24 Procedure(s): US pelvic and transvaginal Accession Number(s): [id number] cc: Rachelle Rodriguez MD; Sravanthi Stuart CNM~ EXAMINATION: US PELVIS CLINICAL INFORMATION: Abnormal uterine bleeding, last menstrual period 2 weeks ago. Patient denies pain. Last menstrual period January 06, 2024. COMPARISON: None available. TECHNIQUE: Ultrasound of the pelvis is performed using both transabdominal and transvaginal transducers along with Doppler. Transvaginal imaging is performed due to inadequate visualization transabdominally. FINDINGS: The uterus is anteverted and retroflexed and measures 8.8 x 4.1 x 5.4 cm. Small amount of fluid in the pelvis. Limited visualization due to bowel gas and body habitus. Double wall endometrial thickness is difficult to confirm due to limited visualization and measures up to 9-11 mm on some images with a double endometrium thickness of 6 mm with small amount of fluid on other images. Visualization limited due to uterine positioning, body habitus and bowel gas. Left ovary measures 3.5 x 2.5 x 2.1 cm. A 2.6 x 2.9 x 2.2 cm complex left ovarian cyst with multiple septations and low-level internal echoes is difficult to fully characterize due to limited visualization. Right ovary measures 2.6 x 3.1 x 2.5 cm, volume 10.6 mL. Right ovarian 1.8 x 2.0 x 1.7 cm mildly complex right ovarian cyst with thin septations and a few low level internal echoes is difficult to fully characterize due to limited visualization. US/US pelvic and transvaginal IMPRESSION: 1. Double wall endometrial thickness is difficult to confirm due to limited visualization and measures up to 9-11 mm on some images with a double endometrium thickness of 6 mm with small amount of fluid within the endometrial cavity on other images. Visualization limited due to uterine positioning, body habitus and bowel gas. 2. Bilateral complex ovarian cysts are difficult to fully characterize due to limited visualization. Recommend follow up ultrasound in 6-8 weeks. Dictated By: Natalie Morgan MD Signed By: <Electronically signed by Natalie Morgan MD in OV> 03/07/24 1027 DD/ 1130 TD/TT: Senior Interactive Producer: Assessment & Plan Assessment & Plan (1) Encounter to discuss test results: Code(s): Z71.2 - Person consulting for explanation of examination or test findings (2) Complex cyst of both ovaries: Code(s): N83.291 - Other ovarian cyst, right side; N83.292 - Other ovarian cyst, left side (3) Abnormal uterine bleeding (AUB): Code(s): N93.9 - Abnormal uterine and vaginal bleeding, unspecified Plan Discussed: Counseled regarding findings of: Limitations of the ultrasound to the gas and bowel. Plan a repeat to recheck in 6-8 weeks. Advised if any increase in vaginal bleeding-heavy or prolonged or any pelvic pain to go to the emergency room for immediate well. Use of [id number] ibuprofen Tylenol and a heating pad if mild discomfort. Complex ovarian cyst, which is often benign, and most resolve on their own overtime. Some develop into premalignant or malignant tumors. Further monitoring and evaluation is recommended with US, possible CT, or MRI study. If persists, or is indicated (Ca-125, Carbohydrate Antigen 19-9, & Carcinoembryonic Antigen) labs will be ordered and referral to [facility] or general gynecology for MD care if indicated for possible surgical consult. Workup for AUB including endometrial biopsy, plan to complete this at her follow-up, counseling regarding preprocedure planning encouraged to have something to eat and drink and take either Tylenol or ibuprofen if no contraindications with food 1 hour before the procedure. Consider control options for cycle control including the Mirena IUD. Initiate either iron tablet daily and/ or she can increase her iron rich foods for now. All of her questions and concerns were addressed to the best of my ability and shared decision making. She is agreeable to the plan of care. This note is constructed using voice recognition software. While every effort has been made to ensure accuracy, freight separator errors may have been included. Orders: Orders US pelvic and transvaginal 04/25/24 N83.291 - Other ovarian cyst, right side, N83.292 - Other ovarian cyst, left side Coding Level of Care Code Est Pt Level 3 (17200) Diagnoses Encounter to discuss test results Z71.2 Complex cyst of both ovaries N83.291; N83.292 Abnormal uterine bleeding (AUB) N93.9
== END 2024-03-14 16:03 | disposition home or self-care (01) ==
PROVIDERS: PCP Internal Medicine; Visit Provider Advanced Practice Midwife
DX: Z71.2 Person consulting for explanation of examination or test findings (principal); N83.291 Other ovarian cyst, right side; N83.292 Other ovarian cyst, left side; N93.9 Abnormal uterine and vaginal bleeding, unspecified
CPT/HCPCS: 99213

== ENCOUNTER → 2024-03-14 15:07 | Outpatient (BNVA) | payer OTHER, SELFPAY | PROVIDERS: PCP Internal Medicine; Visit Provider Advanced Practice Midwife | DX: Z71.2 Person consulting for explanation of examination or test findings (principal); N93.9 Abnormal uterine and vaginal bleeding, unspecified; N83.291 Other ovarian cyst, right side; N83.292 Other ovarian cyst, left side | CPT/HCPCS: 99212 ==

== ENCOUNTER 2024-04-20 10:35 | Outpatient (REF) | payer OTHER, SELFPAY ==
--- NOTE | ~2024-04-20 | US_ITS ---
EXAMINATION: US PELVIS CLINICAL INFORMATION: Follow up ovarian cyst, unknown last menstrual period. COMPARISON: February 29, 2024 TECHNIQUE: Ultrasound of the pelvis is performed using both transabdominal and transvaginal transducers along with Doppler. Transvaginal imaging is performed due to inadequate visualization transabdominally. FINDINGS: The uterus is anteverted, retroflexed and measures 8.5 x 4.1 x 5.2 cm. Endometrial thickness is 10 mm, although visualization of the endometrium is limited due to uterine positioning and bowel gas. No significant free fluid. Right ovary measures 4.3 x 3.4 x 3.6 cm, volume 27.4 mL. Right ovary 3.4 x 2.8 x 1.9 cm complex cyst with multiple septations and low-level internal echoes. Right ovarian complex cyst measured 1.8 x 2.0 x 1.7 cm on 02/29/2024. Left ovary measures 4.3 x 3.5 x 3.4 cm. 3.1 x 2.6 x 2.2 cm left ovarian complex cyst with multiple septations and low level internal echoes. Small amount of free fluid identified adjacent to the left ovary. 2.6 x 2.9 x 2.2 cm left ovarian complex cyst identified on 02/29/2024. US/US pelvic and transvaginal IMPRESSION: 1. Bilateral complex ovarian cysts with multiple septations and low level internal echoes. Recommend follow-up ultrasound in 6-8 weeks. 2. Endometrial thickness is 10 mm, although visualization of the endometrium is limited due to uterine positioning and bowel gas. 3. Small amount of free fluid identified adjacent to the left ovary.
== END 2024-04-20 10:36 | disposition home or self-care (01) ==
LOC: HO.US 10:35
PROVIDERS: PCP Internal Medicine; Visit Provider Advanced Practice Midwife
DX: N83.292 Other ovarian cyst, left side (principal); N83.291 Other ovarian cyst, right side
CPT/HCPCS: 76830; 76856

== ENCOUNTER 2024-04-24 07:59 | Day surgery (SDC) | payer OTHER, SELFPAY ==
[2024-03-22 13:01] VITALS: BMI 38.4
--- NOTE | 2024-03-22 13:37 | HO.ANESPROP2 ---
HPI - Anesthesia Eval Consult details Narrative: 33yo F for Cystoscopy Urethral bulking with bulkamid PMFSH Active Problems Active Problems: All Active Problems RUBIA (stress urinary incontinence, female) (Acute) Intrinsic sphincter deficiency (ISD) (Acute) Urge incontinence of urine (Acute) Hematuria (Acute) Nonspecific exanthematous viral infection (Acute) Irregular menstrual bleeding (Acute) Normal pelvic exam (Acute) Food allergy (Acute) Annual physical exam (Acute) Past Medical History Medical History (Updated 03/22/24 @ 12:58 by Mireille Boswell RN) Irregular menstrual bleeding Normal pelvic exam Food allergy Annual physical exam Overweight Rhinitis, allergic Dysmenorrhea Family History Family History Father No problems noted. Mother No problems noted. Surgical History Surgical History (Updated 03/22/24 @ 12:58 by Mireille Boswell RN) History of H/O tubal ligation Social History Social History Housing: House Patient Tobacco Use Status: Never used Tobacco e-Cigarette/Vaping Use: Never Used service: No Current occupational status: employed Cognitive needs: No Hearing needs: No Vision needs: No Meds Allergies Allergy/AdvReac Type Severity Reaction Status Date / Time milk AdvReac Mild Rash Verified 03/14/24 15:22 Exam Height,Weight and Vital Signs: Height 5 ft 7 in Weight 111.13 kg Pertinent Lab Results Pertinent Lab Results: Laboratory Tests 02/18/24 02/18/24 11:39 12:25 WBC 5.7 Hgb 11.1 L Hct 35.6 L Plt Count 390 Sodium 141 Potassium 3.7 Chloride 110 H Carbon Dioxide 24 BUN 10 Creatinine 0.82 Assessment and Plan Assessment Anesthesia Assessment: Chart Reviewed
--- NOTE | 2024-04-23 09:21 | HO.ANESPROP2 ---
HPI - Anesthesia Eval Consult details Narrative: 33yo F for Cystoscopy Urethral bulking with bulkamid PMFSH Active Problems Active Problems: All Active Problems RUBIA (stress urinary incontinence, female) (Acute) Intrinsic sphincter deficiency (ISD) (Acute) Urge incontinence of urine (Acute) Hematuria (Acute) Nonspecific exanthematous viral infection (Acute) Irregular menstrual bleeding (Acute) Normal pelvic exam (Acute) Food allergy (Acute) Annual physical exam (Acute) Past Medical History Medical History Irregular menstrual bleeding Normal pelvic exam Food allergy Annual physical exam Overweight Rhinitis, allergic Dysmenorrhea Family History Family History Father No problems noted. Mother No problems noted. Surgical History Surgical History History of H/O tubal ligation Social History Social History Housing: House Patient Tobacco Use Status: Never used Tobacco e-Cigarette/Vaping Use: Never Used service: No Current occupational status: employed Cognitive needs: No Hearing needs: No Vision needs: No Meds Allergies Allergy/AdvReac Type Severity Reaction Status Date / Time milk AdvReac Mild Rash Verified 04/24/24 08:28 Exam Height,Weight and Vital Signs: Height 5 ft 7 in Weight 111.13 kg Pertinent Lab Results Pertinent Lab Results: Laboratory Tests 02/18/24 02/18/24 11:39 12:25 WBC 5.7 Hgb 11.1 L Hct 35.6 L Plt Count 390 Sodium 141 Potassium 3.7 Chloride 110 H Carbon Dioxide 24 BUN 10 Creatinine 0.82 Assessment and Plan Assessment Anesthesia Assessment: Chart Reviewed
[2024-04-24] VITALS (10 sets, daily range): BP systolic 113–146; BP diastolic 51–88; PULSE 54–82; RESP 16; TEMP 36.3–36.9; O2SAT 94–98; BMI 28.7
--- NOTE | 2024-04-24 08:26 | HO.ANESPROP2 ---
[facility] Active Problems Active Problems: All Active Problems RUBIA (stress urinary incontinence, female) (Acute) Intrinsic sphincter deficiency (ISD) (Acute) Urge incontinence of urine (Acute) Hematuria (Acute) Nonspecific exanthematous viral infection (Acute) Irregular menstrual bleeding (Acute) Normal pelvic exam (Acute) Food allergy (Acute) Annual physical exam (Acute) Past Medical History Medical History Irregular menstrual bleeding Normal pelvic exam Food allergy Annual physical exam Overweight Rhinitis, allergic Dysmenorrhea Functional capacity: independent ambulation Patient : No Family History Family History Father No problems noted. Mother No problems noted. Family history of problems with anesthesia: No Surgical History Surgical History History of H/O tubal ligation History of Problems with Anesthesia: No Social History Social History Housing: House Patient Tobacco Use Status: Never used Tobacco e-Cigarette/Vaping Use: Never Used Advance Directives: No Advance Directives Information Provided: Yes service: No Current occupational status: employed Cognitive needs: No Hearing needs: No Vision needs: No Meds Allergies Allergy/AdvReac Type Severity Reaction Status Date / Time milk AdvReac Mild Rash Verified 03/14/24 15:22 Active Medications: Current Medications Lactated Ringer's (Lr) 1,000 mls @ 100 mls/hr IVCONT .Q10H COURT Exam Height,Weight and Vital Signs: Height 5 ft 7 in Weight 111.13 kg Airway Mallampati Class: III TM Dist: >3cm Neck ROM: Full Heart: RRR Lungs: CTA Assessment and Plan Assessment Anesthesia Assessment: Anesthesia Plan Discussed Final Anesthetic Review Family History of Problems with Anesthesia: No History of Problems with Anesthesia: No NPO: Yes ASA Class: II Final Preanesthetic Review: Meds/Allgs Chart Reviewed, Anes Risks/Benef Reviewed and DNR Form (If Appl.) Patient Risk: Low Procedure Risk: Low Anesthetic Plan Anesthetic Plan: GA Disposition: Standard PACU
[2024-04-24] MEDS: Lactated Ringers 1,000 ML 100 ML IVCONT (08:51)
--- NOTE | 2024-04-24 09:06 | MHC.SHP ---
Pre-Procedural Eval Section A - 24 Hr Update-Section A only Date of Service: 04/24/24 The patient is an INPATIENT: No The patient has been examined within 24 hours of the surgical procedure. The History & Physical has been completed within 30 days and I have reviewed it.: Yes Section B - Complete if H&P > 30 days Chief Complaint: Instrinsic sphincter deficiency Allergies: Allergies Allergy/AdvReac Type Severity Reaction Status Date / Time milk AdvReac Mild Rash Verified 04/24/24 08:28 Plan Diagnosis/Plan: Unchanged I have reviewed the history and physical and performed a pertinent physical examination on my patient. No changes have occurred unless specified. Cystoscopy, bulkamid, urethral bulking proximal urethra Time Spent With Patient Time: Total time managing care of this patient today ____ minutes.
--- NOTE | 2024-04-24 09:44 | W.PM.OPN ---
Operative Note Operative Note Date of Service: 04/24/24 Narrative: Preop diagnosis: Intrinsic sphincter deficiency Postop diagnosis: Intrinsic sphincter deficiency Procedure: Cystoscopy urethral bulking with bulkamid system at the proximal urethra/bladder neck Surgeon: Dr. Teo Ro Details of procedure: The patient was brought into the operating room placed on the OR table in supine position IV sedation was administered. Antibiotics confirmed. Ancef 2 gm IV The patient was placed in lithotomy position prepped and draped in the usual sterile fashion. Safety time-out was done. A 14 [place] straight catheter was used to send urine for culture. 2% lidocaine jelly was inserted transurethrally 10 mL. Using the 0 degree 11 cm cystoscope with the light cord in the 6 o'clock position, the bladder was filled with sterile water to 150 mL the bladder was visualized. With the sheath at the 5 o'clock position the needle was inserted to the 1 cm bella and 0.5 mL of gel was injected there was good bulking noted. This was repeated on the 7 o'clock position. The 2nd needle was inserted into the sheath and an injection was done at the 2 o'clock position and again at the 11 o'clock position. There was good bulking noted withou complete coaptation visualized at the bladder neck. There was no extrusion of bulking agent noted. The patient tolerated the procedure and was taken to recovery in stable condition. Complication: none Drains: none
[2024-04-24] MEDS: Phenazopyridine HCL 200 MG TABLET PO (09:57)
--- NOTE | 2024-04-24 10:58 | HO.POSTANES ---
Post Anesthesia Evaluation Post Anesthesia Evaluation Date of Service: 04/24/24 Vital Signs: Vital Signs Temp Pulse Resp BP Pulse Ox O2 Del Method 04/24/24 10:50 57 16 139/76 98 Room Air 04/24/24 10:34 54 16 128/85 98 Room Air 04/24/24 10:20 61 16 137/59 L 98 Room Air 04/24/24 10:05 68 16 113/67 97 Room Air 04/24/24 10:00 82 16 120/70 94 Room Air 04/24/24 09:55 62 16 129/76 95 Room Air 04/24/24 09:50 97.3 F 59 16 144/88 H 98 Room Air 04/24/24 08:39 98.5 F 63 16 140/71 H 97 Room Air Anesthesia: General LMA Mental Status: Awake Pain Control: Satisfactory Nausea/Vomiting: None Hydration: Adequate Anesthesia-Related Issues: No Anes. Related Issues
== END 2024-04-24 11:57 | disposition home or self-care (01) ==
PROVIDERS: PCP Internal Medicine; Visit Provider Urology
PROC: 3E0K8GC Introduction of Other Therapeutic Substance into Genitourinary Tract, Via Natural or Artificial Opening Endoscopic (ICD-10-PCS; CPT 52287; principal; 2024-04-24 09:50)
DX: N39.3 Stress incontinence (female) (male) (principal); N36.42 Intrinsic sphincter deficiency (ISD); N39.41 Urge incontinence; E66.3 Overweight; Z91.011 Allergy to milk products; Z98.51 Tubal ligation status
CPT/HCPCS: 51715; 87086; J0690; J1100; J2250; J2405; J2704; J3010; L8606

== ENCOUNTER → 2024-04-24 07:59 | Outpatient (BNV) | payer OTHER, SELFPAY | PROVIDERS: PCP Internal Medicine; Visit Provider Urology | DX: N36.42 Intrinsic sphincter deficiency (ISD) (principal) | CPT/HCPCS: 51715 ==

== ENCOUNTER → 2024-04-26 13:25 | Outpatient (BNVA) | payer OTHER, SELFPAY | PROVIDERS: PCP Internal Medicine; Visit Provider Urology | DX: N36.42 Intrinsic sphincter deficiency (ISD) (principal); N39.41 Urge incontinence | CPT/HCPCS: 51798 ==

== ENCOUNTER 2024-05-18 09:31 | Outpatient (REF) | payer OTHER, SELFPAY ==
[2024-05-18 22:05] LABS: Carcinoembryonic Antigen < 1.73 ng/mL
[2024-05-19 08:28] LABS: CA-125 38 U/mL (<35)
[2024-05-19 09:58] LABS: Carbohydrate Antigen 19-9 33 U/mL (<34)
== END 2024-05-18 09:32 | disposition home or self-care (01) ==
LOC: HO.LAB 09:31
PROVIDERS: PCP Internal Medicine; Visit Provider Advanced Practice Midwife
DX: N83.291 Other ovarian cyst, right side (principal); N83.292 Other ovarian cyst, left side; N93.9 Abnormal uterine and vaginal bleeding, unspecified; R10.2 Pelvic and perineal pain
CPT/HCPCS: 36415; 81025; 82378; 86301; 86304; 99212

== ENCOUNTER 2024-05-18 09:31 | Outpatient (AMB) | payer OTHER, SELFPAY ==
--- NOTE | 2024-05-18 09:32 | MHC.OFFVIS ---
Vital Signs 05/18/24 09:35 Height 5 ft 7 in BP 116/74 Intake Visit Reasons: US follow up/EMB Telephone Order Clerk Room Service: Telephone Order Clerk Room Service Present (Keely) Allergies milk Adverse Reaction (Mild, Verified 05/18/24 09:35) Rash Is last menstrual period known: Yes Last menstrual period: 05/03/24 HPI Comments Details: Patient is here for an ultrasound follow up due to bilateral complex ovarian cysts and an endometrial biopsy due to AUB. She reports she is having left sided pelvic pain intermittently. She is upset and does not want to do the endometrial biopsy today she just wants to be done with everything she is overwhelmed. She has a history of abnormal bleeding in the past and had a biopsy it was not women's 8-10 years ago and was told she was at risk to developing complications in the future. [facility] Medical History Irregular menstrual bleeding Normal pelvic exam Food allergy Annual physical exam Overweight Rhinitis, allergic Dysmenorrhea Surgical History History of H/O tubal ligation Family History Father No problems noted. Mother No problems noted. Social History Housing: House Patient Tobacco Use Status: Never used Tobacco e-Cigarette/Vaping Use: Never Used service: No Current occupational status: employed Cognitive needs: No Hearing needs: No Vision needs: No Female Reproductive History Menstrual Duration of menses: 6-7 days Date of last menstrual period: 05/03/24 Review of Systems Const All systems reviewed & are unremarkable except as noted in HPI and below Endo Reports no additional complaints Physical Exam Vital Signs: Last Vital Signs BP 116/74 05/18/24 09:35 Const General: cooperative, healthy appearing and no acute distress Psych Appearance: well kempt Attitude: cooperative Thought process: Normal thought process present Results AMB Test Urine AMB Test Urine Negative Last Edit by JEANNE Forrester on 05/18/24 09:43 Results Reviewed Results Reviewed: Laboratory Last Values [facility] Clinic Negative 05/18/24 09:[address] [address] Ultrasound Report Signed Patient: Kassi Louise MR#: [id number] : 1990 Acct:[id number] Age/Sex: 33 / F ADM Date: 04/20/24 Loc: HO.US Attending Dr: Sravanthi Stuart CNM Ordering Physician: Sravanthi Stuart CNM Date of Service: 04/20/24 Procedure(s): US pelvic and transvaginal Accession Number(s): [id number] cc: Rachelle Rodriguez MD; Sravanthi Stuart CNM~ EXAMINATION: US PELVIS CLINICAL INFORMATION: Follow up ovarian cyst, unknown last menstrual period. COMPARISON: February 29, 2024 TECHNIQUE: Ultrasound of the pelvis is performed using both transabdominal and transvaginal transducers along with Doppler. Transvaginal imaging is performed due to inadequate visualization transabdominally. FINDINGS: The uterus is anteverted, retroflexed and measures 8.5 x 4.1 x 5.2 cm. Endometrial thickness is 10 mm, although visualization of the endometrium is limited due to uterine positioning and bowel gas. No significant free fluid. Right ovary measures 4.3 x 3.4 x 3.6 cm, volume 27.4 mL. Right ovary 3.4 x 2.8 x 1.9 cm complex cyst with multiple septations and low-level internal echoes. Right ovarian complex cyst measured 1.8 x 2.0 x 1.7 cm on 02/29/2024. Left ovary measures 4.3 x 3.5 x 3.4 cm. 3.1 x 2.6 x 2.2 cm left ovarian complex cyst with multiple septations and low level internal echoes. Small amount of free fluid identified adjacent to the left ovary. 2.6 x 2.9 x 2.2 cm left ovarian complex cyst identified on 02/29/2024. US/US pelvic and transvaginal IMPRESSION: 1. Bilateral complex ovarian cysts with multiple septations and low level internal echoes. Recommend follow-up ultrasound in 6-8 weeks. 2. Endometrial thickness is 10 mm, although visualization of the endometrium is limited due to uterine positioning and bowel gas. 3. Small amount of free fluid identified adjacent to the left ovary. Dictated By: Natalie Morgan MD Signed By: <Electronically signed by Natalie Morgan MD in OV> 05/09/24 1416 DD/ 1112 TD/TT: Paper Coating Supervisor: Assessment & Plan Assessment & Plan (1) Complex cyst of both ovaries: Code(s): N83.291 - Other ovarian cyst, right side; N83.292 - Other ovarian cyst, left side Category: Medical (2) Abnormal uterine bleeding (AUB): Code(s): N93.9 - Abnormal uterine and vaginal bleeding, unspecified Category: Medical (3) Pelvic pain: Code(s): R10.2 - Pelvic and perineal pain Category: Medical Plan Discussed: Ultrasound findings. Counseled regarding findings of: Complex ovarian cyst, which is often benign, and most resolve on their own overtime. Some develop into premalignant or malignant tumors. Further monitoring and evaluation is recommended with US, possible CT, or MRI study. If persists, or is indicated (Ca-125, Carbohydrate Antigen 19-9, & Carcinoembryonic Antigen) labs will be ordered and referral to [facility] or general gynecology for MD care if indicated for possible surgical consult. Follow up in person for test results. AUB-importance of endometrial biopsy sampling to distinguish any abnormal changes including atypia, precancer, cancer of the uterus. If cancer of the uterus is present and intervention is not completed, cancer can metastasize and be difficult to treat resulting in poor outcome. She was weepy with discussion today and does agree to see Dr. Dwyer for 2nd opinion or [facility]. Consult with Dr. Dwyer scheduled. All of her questions and concerns were addressed to the best of my ability and shared decision making. She is agreeable to the plan of care. This note is constructed using voice recognition software. While every effort has been made to ensure accuracy, computerized mill mill recorder errors may have been included. Orders: Orders AMB HCG Urine Test Today Z32.02 - Encounter for test, result negative Carbohydrate Antigen 19-9 Today N83.291 - Other ovarian cyst, right side, N83.292 - Other ovarian cyst, left side Carcinoembryonic Antigen Today N83.291 - Other ovarian cyst, right side, N83.292 - Other ovarian cyst, left side US pelvic and transvaginal 6 Weeks N83.291 - Other ovarian cyst, right side, N83.292 - Other ovarian cyst, left side, N93.9 - Abnormal uterine and vaginal bleeding, unspecified, R10.2 - Pelvic and perineal pain CA-125 Today N83.291 - Other ovarian cyst, right side, N83.292 - Other ovarian cyst, left side, N83.299 - Other ovarian cyst, unspecified side Coding Level of Care Code Est Pt Level 3 (36181) Diagnoses Complex cyst of both ovaries N83.291; N83.292 Abnormal uterine bleeding (AUB) N93.9 Pelvic pain R10.2
[2024-05-18 09:35] VITALS: BP 116/74
== END 2024-05-18 10:40 | disposition home or self-care (01) ==
PROVIDERS: PCP Internal Medicine; Visit Provider Advanced Practice Midwife
DX: N83.291 Other ovarian cyst, right side (principal); N83.292 Other ovarian cyst, left side; N93.9 Abnormal uterine and vaginal bleeding, unspecified; R10.2 Pelvic and perineal pain; Z32.02 Encounter for pregnancy test, result negative
CPT/HCPCS: 99213

== ENCOUNTER 2024-05-28 14:59 | Outpatient (REF) | payer OTHER, SELFPAY ==
[2024-05-28 17:36] LABS: Blood Urea Nitrogen 12 mg/dL (9-16); Estimated Glomerular Filt Rate > 60; Lactate Dehydrogenase 209 U/L (122-220)
[2024-05-28 18:00] LABS: HCG Quantitative < 2 mIU/mL; TSH reflex Free T4 1.37 uIU/mL (0.32-4.0)
[2024-05-29 11:49] LABS: Alpha Fetoprotein 1.7 ng/mL
[2024-05-29 12:08] LABS: Prolactin 7.2 ng/mL
[2024-06-04 18:03] LABS: Inhibin B <10 pg/mL
== END 2024-05-28 15:00 | disposition home or self-care (01) ==
LOC: HO.LAB 14:59
PROVIDERS: PCP Internal Medicine; Visit Provider Obstetrics & Gynecology
DX: N83.291 Other ovarian cyst, right side (principal); N83.292 Other ovarian cyst, left side; N93.9 Abnormal uterine and vaginal bleeding, unspecified
CPT/HCPCS: 36415; 82105; 82565; 83520; 83615; 84146; 84443; 84520; 84702; 86336; 99212

== ENCOUNTER 2024-05-28 14:59 | Outpatient (AMB) | payer OTHER, SELFPAY ==
[2024-05-28 14:59] VITALS: BMI 38.4
--- NOTE | 2024-05-28 14:59 | MHC.OFFVIS ---
Vital Signs 05/28/24 14:59 Height 5 ft 7 in Weight 245 lb BMI 38.4 Intake Visit Reasons: Hyst consult Director Television Required: No Information Interpreted: non-clinical & clinical Accompanied by: Self / Same As Patient Allergies milk Adverse Reaction (Mild, Verified 05/28/24 15:01) Rash HPI Comments Details: Presenting referred from Sravanthi Stuart CNM regarding abnormal uterine bleeding and endometrial sampling . The patient had the following ultrasound recently Pelvic ultrasound showed the following: he uterus is anteverted, retroflexed and measures 8.5 x 4.1 x 5.2 cm. Endometrial thickness is 10 mm, although visualization of the endometrium is limited due to uterine positioning and bowel gas. No significant free fluid. Right ovary measures 4.3 x 3.4 x 3.6 cm, volume 27.4 mL. Right ovary 3.4 x 2.8 x 1.9 cm complex cyst with multiple septations and low-level internal echoes. Right ovarian complex cyst measured 1.8 x 2.0 x 1.7 cm on 02/29/2024. Left ovary measures 4.3 x 3.5 x 3.4 cm. 3.1 x 2.6 x 2.2 cm left ovarian complex cyst with multiple septations and low level internal echoes. Small amount of free fluid identified adjacent to the left ovary. 2.6 x 2.9 x 2.2 cm left ovarian complex cyst identified on 02/29/2024. CA 11/24/2037, CA 19-9 and CEA within normal Last co testing in 10/22 was negative [facility] Medical History Irregular menstrual bleeding Normal pelvic exam Food allergy Annual physical exam Overweight Rhinitis, allergic Dysmenorrhea Surgical History History of H/O tubal ligation Family History Father No problems noted. Mother No problems noted. Social History Housing: House Patient Tobacco Use Status: Never used Tobacco e-Cigarette/Vaping Use: Never Used service: No Current occupational status: employed Cognitive needs: No Hearing needs: No Vision needs: No Physical Exam Vital Signs: BMI result Body Mass Index 38.4 Assessment & Plan Assessment & Plan (1) Abnormal uterine bleeding (AUB): Code(s): N93.9 - Abnormal uterine and vaginal bleeding, unspecified Category: Medical Plan: TSH, prolactin and hCG ordered. Recommended to the patient that the next step is an endometrial sampling via hysteroscopy D&C possible polypectomy versus endometrial biopsy to r/o endometrial pathology including hyperplasia or cancer. All the pros and cons risks and benefits of each approach were discussed with the patient, endometrial biopsy being less invasive, office procedure with less sensitivity and inability diagnose a polyp and removal versus hysteroscopy done under anesthesia more invasive more sensitive to endometrial cancer and possibility of diagnosing and endometrial polyp with the possibility of polypectomy. All questions were answered pt verbalized understanding and decided to proceed with endometrial biopsy but would like to come back for tomorrow after taking pain medication prior to the procedure. Instructions given the patient to schedule EMB appointment tomorrow. (2) Complex cyst of both ovaries: Comment: Elevated CA 125 Code(s): N83.291 - Other ovarian cyst, right side; N83.292 - Other ovarian cyst, left side Category: Medical Plan: Discussed with the patient bilateral ovarian complex cyst with multiple septation in mildly elevated CA 125. Discussed with the patient the differential diagnosis of complex ovarian cyst including benign, premalignant or malignant causes, discussed with the patient the sensitivity, specificity false-positive false-negative rate of CA 125 in detecting ovarian malignancy. Will order inhibin LDH alpha-fetoprotein with CT scan of abdomen and pelvis. Orders: Orders Prolactin Today N93.9 - Abnormal uterine and vaginal bleeding, unspecified HCG Quantitative Today N93.9 - Abnormal uterine and vaginal bleeding, unspecified Alpha Fetoprotein Today N83.291 - Other ovarian cyst, right side, N83.292 - Other ovarian cyst, left side, N83.299 - Other ovarian cyst, unspecified side Lactate Dehydrogenase Today N83.291 - Other ovarian cyst, right side, N83.292 - Other ovarian cyst, left side, N83.299 - Other ovarian cyst, unspecified side Inhibin A Today N83.291 - Other ovarian cyst, right side, N83.292 - Other ovarian cyst, left side Inhibin B Today N83.291 - Other ovarian cyst, right side, N83.292 - Other ovarian cyst, left side TSH reflex Free T4 Today N93.9 - Abnormal uterine and vaginal bleeding, unspecified CT abdomen pelvis wo/w IV con Today N83.291 - Other ovarian cyst, right side, N83.292 - Other ovarian cyst, left side Coding Level of Care Code Est Pt Level 3 (10318) Diagnoses Abnormal uterine bleeding (AUB) N93.9 Complex cyst of both ovaries N83.291; N83.292
== END 2024-05-28 16:09 | disposition home or self-care (01) ==
LOC: HO.HWS 14:59
PROVIDERS: PCP Internal Medicine; Visit Provider Obstetrics & Gynecology
DX: N93.9 Abnormal uterine and vaginal bleeding, unspecified (principal); N83.291 Other ovarian cyst, right side; N83.292 Other ovarian cyst, left side
CPT/HCPCS: 99213

== ENCOUNTER 2024-05-29 13:47 | Outpatient (AMB) | payer OTHER, SELFPAY ==
--- NOTE | 2024-05-29 14:08 | MHC.OFFVIS ---
Vital Signs 05/29/24 14:18 Height 5 ft 7 in Weight 244 lb 11.41 oz BMI 38.3 BP 116/74 Intake Visit Reasons: EMB Rotary Shear Cutter Required: No Information Interpreted: non-clinical & clinical Gristmiller: Gristmiller Present (Yamila Denton JEANNE) Accompanied by: Self / Same As Patient Allergies milk Adverse Reaction (Mild, Verified 05/29/24 14:19) Rash Is last menstrual period known: Yes Last menstrual period: 05/29/24 HPI Comments Details: Presenting for EMB [facility] Medical History Irregular menstrual bleeding Normal pelvic exam Food allergy Annual physical exam Overweight Rhinitis, allergic Dysmenorrhea Surgical History History of H/O tubal ligation Family History Father No problems noted. Mother No problems noted. Social History Housing: House Patient Tobacco Use Status: Never used Tobacco e-Cigarette/Vaping Use: Never Used service: No Current occupational status: employed Cognitive needs: No Hearing needs: No Vision needs: No Female Reproductive History Menstrual Date of last menstrual period: 05/29/24 Review of Systems Const All systems reviewed & are unremarkable except as noted in HPI and below Reports as per HPI and Reports no additional complaints GI Reports no additional complaints Reports no additional complaints Physical Exam Vital Signs: Last Vital Signs BP 116/74 05/29/24 14:18 BMI result Body Mass Index 38.3 Office Procedures Endometrial Biopsy Details: The patient was counseled regarding the indication and benefits of endometrial sampling to rule out endometrial pathology including not limited to endometrial hyperplasia or endometrial cancer and others; The alternatives (Either do nothing vs. hysteroscopy D&C) & the risks were discussed with the patient including but not limited: pain, uterine perforation, bleeding, infection, possible injury to bladder, bowel, ureter, possible need for blood transfusion with all its possible risks. The patient verbalized understanding all questions answered and signed consent. Urine test done in the office was negative The patient was placed into the dorsal lithotomy position; a speculum was inserted in the vagina. Using aseptic technique for the procedure, the cervix was cleansed with Betadine. The anterior lip of the cervix was grasped with a single tooth tenaculum. The uterus was sounded to 7 cm with a 4 mm Pipelle was used. Tissues samples were obtained and placed in formalin, in a patient labeled container and sent to the pathology department. At the end of the procedure, there was minimal bleeding noted The patient tolerated the procedure well and was discharged in good condition with the following instructions: Nothing in the vagina until the bleeding stops. No sex until the bleeding stops, to call if any of the following occurs: fever (>100.4), flu-like symptoms, abdominal pain, heavy bleeding, four smelling vaginal discharge. The patient was instructed to schedule a Follow up appointment in 2 weeks to discuss pathology results of the biopsy and treatment options. This note was generated with a voice recognition program. Some errors may have been overlooked during the review of this note. Sometimes these errors may affect the content or meaning of a given sentence. [id number] Biopsy Results AMB Test Urine AMB Test Urine Negative Last Edit by Yamila Denton CMA on 05/29/24 14:30 Assessment & Plan Assessment & Plan (1) Abnormal uterine bleeding (AUB): Code(s): N93.9 - Abnormal uterine and vaginal bleeding, unspecified Category: Medical Plan: EMB done, see procedure note Orders: Orders AMB HCG Urine Test Today Z32.02 - Encounter for test, result negative AMB Endometrial Biopsy Today N93.9 - Abnormal uterine and vaginal bleeding, unspecified Surgical Today N93.9 - Abnormal uterine and vaginal bleeding, unspecified Coding Level of Care Code Procedure Only Diagnoses Abnormal uterine bleeding (AUB) N93.9 CPT Codes Endometrial Biopsy - CPT: 80724-Dleyhfabxox Biopsy ([id number])
[2024-05-29 14:18] VITALS: BP 116/74; BMI 38.3
== END 2024-05-29 14:41 | disposition home or self-care (01) ==
LOC: HO.HWS 13:47
PROVIDERS: PCP Internal Medicine; Visit Provider Obstetrics & Gynecology
DX: N93.9 Abnormal uterine and vaginal bleeding, unspecified (principal); Z32.02 Encounter for pregnancy test, result negative
CPT/HCPCS: 58100

== ENCOUNTER 2024-05-29 13:47 | Outpatient (REF) | payer OTHER, SELFPAY | END 2024-05-29 13:48 | disposition home or self-care (01) | LOC: HO.LNP 13:47 | PROVIDERS: PCP Internal Medicine; Visit Provider Obstetrics & Gynecology | DX: N93.9 Abnormal uterine and vaginal bleeding, unspecified (principal) | CPT/HCPCS: 58100; 81025; 88305 ==

== ENCOUNTER 2024-06-04 08:54 | Outpatient (AMB) | payer OTHER, SELFPAY ==
[2024-06-04 09:08] VITALS: BMI 38.3
--- NOTE | 2024-06-04 09:08 | A.OFFVIS_ITS ---
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 The following workup was done.: H&H= 11.1/35.3 TSH, prolactin hCG, GC and chlamydia were negative. Endometrial biopsy pathology showed benign dyssynchronous secretory endometrium with no evidence of hyperplasia and/or malignancy. Co testing was done was negative. In 10/22Pelvic ultrasound showed the following: The uterus is anteverted, retroflexed and measures 8.5 x 4.1 x 5.2 cm. Endometrial thickness is 10 mm, although visualization of the endometrium is limited due to uterine positioning and bowel gas. No significant free fluid. Right ovary measures 4.3 x 3.4 x 3.6 cm, volume 27.4 mL. Right ovary 3.4 x 2.8 x 1.9 cm complex cyst with multiple septations and low-level internal echoes. Right ovarian complex cyst measured 1.8 x 2.0 x 1.7 cm on 02/29/2024. Left ovary measures 4.3 x 3.5 x 3.4 cm. 3.1 x 2.6 x 2.2 cm left ovarian complex cyst with multiple septations and low level internal echoes. Small amount of free fluid identified adjacent to the left ovary. 2.6 x 2.9 x 2.2 cm left ovarian complex cyst identified on 02/29/2024. CT scan of abdomen and pelvis with contrast and oral contrast ordered CA 125 was elevated at 38, normal LDH, alpha fetoprotein, CEA, CA 19 9 and inhibin A , inhibin B still pending [facility] Medical History Irregular menstrual bleeding Normal pelvic exam Food allergy Annual physical exam Overweight Rhinitis, allergic Dysmenorrhea Surgical History History of H/O tubal ligation Family History Father No problems noted. Mother No problems noted. Social History Housing: House Patient Tobacco Use Status: Never used Tobacco e-Cigarette/Vaping Use: Never Used service: No Current occupational status: employed Cognitive needs: No Hearing needs: No Vision needs: No Review of Systems Const All systems reviewed & are unremarkable except as noted in HPI and below Reports as per HPI and Reports no additional complaints GI Reports no additional complaints Reports no additional complaints Physical Exam Vital Signs: BMI result Body Mass Index 38.3 Assessment & Plan Assessment & Plan (1) Abnormal uterine bleeding (AUB): Code(s): N93.9 - Abnormal uterine and vaginal bleeding, unspecified Category: Medical Plan: Discussed with the patient the results of the work up done and options of treatment including Lysteda, BCP's, Mirena IUD, endometrial ablation and hy sterectomy. All pros, cons, risks and benefits if each option was discussed with the patient and the patient decided to go ahead with Lysteda , so a more detailed discussion re: Lysteda including mechanism of action, benefits, risks including but not limited to thrombosis and strokes, Instructions were given on how to use, 2 tablets p.o. 3 times a day day 1 up to 3-5 days of menses and to schedule a 3 months follow-up appointment. Discussed with the patient possible cross allergic reaction to milk allergy, instructions given the patient to test Lysteda if after the 1st pill any allergy or itching or rash developed to discontinue the medication immediately and call. The patient verbalized understanding and agreed with the plan. (2) Complex cyst of both ovaries: Comment: Elevated CA 125 Code(s): N83.291 - Other ovarian cyst, right side; N83.292 - Other ovarian cyst, left side Category: Medical Plan: Discussed with the patient the finding on ultrasound bilateral complex ovarian cyst and elevated CA 125. Differential diagnosis discussed with the patient including benign disease with false elevated CA 125 versus premalignant or malignant ovarian or non coil winding supervisor pathology. Discussed with the patient sensitivity, specificity, false-positive and false-negative rate of ovarian cancer tumor markers. CT scan of abdomen and pelvis with contrast and oral contrast ordered, will refer to [facility] coil winding supervisor Oncology for further management Orders: Referrals Gynecologic Oncology Referral N83.291 - Other ovarian cyst, right side, N83.292 - Other ovarian cyst, left side Medications: New tranexamic acid Start 1st day of menses and take it up to 3-5 days of menses. 1,300 mg (2 x 650 mg) PO TID 5 days 30 tabs 2RF Coding Level of Care Code Est Pt Level 3 (06970) Diagnoses Abnormal uterine bleeding (AUB) N93.9 Complex cyst of both ovaries N83.291; N83.292
== END 2024-06-04 09:35 | disposition home or self-care (01) ==
PROVIDERS: PCP Internal Medicine; Visit Provider Obstetrics & Gynecology
DX: N93.9 Abnormal uterine and vaginal bleeding, unspecified (principal); N83.291 Other ovarian cyst, right side; N83.292 Other ovarian cyst, left side
CPT/HCPCS: 99213

== ENCOUNTER → 2024-06-04 08:54 | Outpatient (BNVA) | payer OTHER, SELFPAY | PROVIDERS: PCP Internal Medicine; Visit Provider Obstetrics & Gynecology | DX: N93.9 Abnormal uterine and vaginal bleeding, unspecified (principal); N83.291 Other ovarian cyst, right side; N83.292 Other ovarian cyst, left side | CPT/HCPCS: 99212 ==

== ENCOUNTER 2024-07-25 10:37 | Outpatient (AMB) | payer OTHER, SELFPAY ==
--- NOTE | 2024-07-25 12:58 | A.OFFVIS_ITS ---
Intake Visit Reasons: Bulkamid follow up Intake Note: Patient is present for bulkamid f/u Urology Medication:none Antibiotic Allergy:none Blood Thinner:none Overweaver Required: No Allergies milk Adverse Reaction (Mild, Verified 07/25/24 12:59) Rash HPI Comments Details: 07/25/24--SP bulkamid. She states the procedure did not help. She states she only noted a mild improvement, she still leaks during the night. She denies irritative voiding symptoms. She declines repeat bulkamid bulking. 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 Review of chart: 01/27/24--CMG parameters detailed below. Interpretation: During the filling phase there was normal sensation. Sensory urgency was not present. Detrusor overactivity was not observed. Leakage was observed during cough and valsalva at 225 mL and 315 mL. Bladder capacity was within the average range. The patient felt that she was at cap acity at 592 mL She voided 150 mL with the urethral and rectal catheter in place. The urethral catheter was removed leaving the rectal catheter in place and she was not able to void anymore of the fluid in the bladder. After removing both urethral catheters. The patient voided in the bathroom 500 mL. EMG- Appropriate changes in the waveforms were noted through out the study. I have discussed treatment options for stress urinary incontinence with intrinsic sphincter deficiency to include bulkamid, urethral bulking agent versus sling procedure. Kassi is a 33 year old female with symptoms of urinary incontinence. She states that she leaks with coughing or lifting as well as if she gets an urge she may leak before getting to the bathroom. She drinks 5-6 16 oz bottles of water throughout the day to keep hydrated. She states that when she leaks it is a gush. She does not wear pads but she will bring extra clothes to work with her. [facility] Medical History Irregular menstrual bleeding Normal pelvic exam Food allergy Annual physical exam Overweight Rhinitis, allergic Dysmenorrhea Surgical History History of H/O tubal ligation Family History Father No problems noted. Mother No problems noted. Social History Housing: House Patient Tobacco Use Status: Never used Tobacco e-Cigarette/Vaping Use: Never Used service: No Current occupational status: employed Cognitive needs: No Hearing needs: No Vision needs: No Review of Systems Const All systems reviewed & are unremarkable except as noted in HPI and below Reports no additional complaints Eyes Reports no additional complaints ENT Reports no additional complaints Card Reports no additional complaints Resp Reports no additional complaints GI Reports no additional complaints Reports as per HPI Musc Reports no additional complaints Skin/Breast Reports system reviewed and no additional complaints, except as documented Neuro Reports no additional complaints Psych Reports no additional complaints Endo Reports no additional complaints Chris/Lymph Reports no additional complaints Aller/Immun Reports no additional complaints Telehealth Telehealth Telehealth Platform: Telephone Location of provider rendering services: practice address Location of patient: address on file Patient Identification confirmed using: Name, : Yes Telehealth method: voice only Patient verbally consented to treatment: Yes Patient verbally consented to billing insurance company: Yes Patient informed of any privacy concerns related to visit: Yes Minutes spent on Phone/Video with Pt.: 14 Assessment & Plan Assessment & Plan (1) Urinary incontinence: Code(s): R32 - Unspecified urinary incontinence Category: Medical (2) Pelvic pain: Code(s): R10.2 - Pelvic and perineal pain Category: Medical Plan She declines repeat bulkamid bulking. 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 Patient Instructions: The patient had an opportunity to ask questions regarding treatment plan. The patient expressed understanding and agreement with the above treatment plan. The patient is aware they should contact our office by phone for worsening of their current condition or the appearance of new symptoms. Compliance is encouraged with any medications and followup testing that is ordered. It is a privilege to be allowed the opportunity to participate in the urologic care of your patient. If you have any questions or concerns regarding treatment for the above conditions please do not hesitate to contact me. The office telephone contact is [phone]. This note is constructed in part using voice recognition software. While every e ffort has been made to ensure accuracy business center attendant errors may have been included. Yours sincerely, Teo Ro, MD Coding Level of Care Code Tele Est Pt Level 3 (88996) Diagnoses Urinary incontinence R32 Pelvic pain R10.2
== END 2024-07-25 14:10 | disposition home or self-care (01) ==
LOC: HO.HUSH 10:37
PROVIDERS: PCP Internal Medicine; Visit Provider Urology
DX: R32 Unspecified urinary incontinence (principal); R10.2 Pelvic and perineal pain
CPT/HCPCS: 99213

== ENCOUNTER → 2024-07-25 10:37 | Outpatient (BNVA) | payer OTHER, SELFPAY | PROVIDERS: PCP Internal Medicine; Visit Provider Urology ==

== ENCOUNTER 2025-01-21 09:46 | Outpatient (AMB) | payer OTHER, SELFPAY ==
--- NOTE | 2025-01-21 09:50 | MHC.OFFVIS ---
Intake Visit Reasons: 6m follow up Intake Note: Patient is present for 6 month follow up Urology Medication:none Antibiotic Allergy:none Blood Thinner:none PVR:0ml Physical Therapy Resident Required: No Allergies milk Adverse Reaction (Mild, Verified 01/21/25 09:55) Rash Medication List - Last Reconciled 01/21/25 by Teo Ro MD cetirizine (Zyrtec) 10 mg PO DAILY ibuprofen 600 mg PO Q6H PRN tranexamic acid 1,300 mg (2 x 650 mg) PO TID 5 days HPI Comments Details: 01/21/25--Kassi is a 34 year old female who is being followed due to complaints of stress urinary incontinence. Denies dysuria. The patient is a 34-year-old female presenting with urinary incontinence. Initial investigative urodynamic studies in December 2023 revealed stress incontinence, leading to the performance of a urethral bulking procedure in July 2024. While postoperative results showed marginal improvement, the incontinence persists, impacting her sleep and daily activities. Additionally, she is considering surgical intervention for gynecological issues, such as menorrhagia and ovarian. Results - Urodynamic studies (December 2023): normal stable water filling with stress incontinence on cough and Valsalva - Unable to provide a urine sample today. Bladder scan post-void residual: 0 mg 07/25/24--SP bulkamid. She states the procedure did not help. She states she only noted a mild improvement, she still leaks during the night. She denies irritative voiding symptoms. She declines repeat bulkamid bulking. 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 01/27/24--CMG parameters detailed below. Interpretation: During the filling phase there was normal sensation. Sensory urgency was not present. Detrusor overactivity was not observed. Leakage was observed during cough and valsalva at 225 mL and 315 mL. Bladder capacity was within the average range. The patient felt that she was at capacity at 592 mL She voided 150 mL with the urethral and rectal catheter in place. The urethral catheter was removed leaving the rectal catheter in place and she was not able to void anymore of the fluid in the bladder. After removing both urethral catheters. The patient voided in the bathroom 500 mL. EMG- Appropriate changes in the waveforms were noted through out the study. I have discussed treatment options for stress urinary incontinence with intrinsic sphincter deficiency to include bulkamid, urethral bulking agent versus sling procedure. Kassi is a 33 year old female with symptoms of urinary incontinence. She states that she leaks with coughing or lifting as well as if she gets an urge she may leak before getting to the bathroom. She drinks 5-6 16 oz bottles of water throughout the day to keep hydrated. She states that when she leaks it is a gush. She does not wear pads but she will bring extra clothes to work with her. [facility] Medical History Irregular menstrual bleeding Normal pelvic exam Food allergy Annual physical exam Overweight Rhinitis, allergic Dysmenorrhea Surgical History History of H/O tubal ligation Family History Father No problems noted. Mother No problems noted. Social History Housing: House Patient Tobacco Use Status: Never used Tobacco e-Cigarette/Vaping Use: Never Used service: No Current occupational status: employed Cognitive needs: No Hearing needs: No Vision needs: No Review of Systems Const All systems reviewed & are unremarkable except as noted in HPI and below Reports no additional complaints Eyes Reports no additional complaints ENT Reports no additional complaints Card Reports no additional complaints Resp Reports no additional complaints GI Reports no additional complaints Reports as per HPI Musc Reports no additional complaints Skin/Breast Reports system reviewed and no additional complaints, except as documented Neuro Reports no additional complaints Psych Reports no additional complaints Endo Reports no additional complaints Chris/Lymph Reports no additional complaints Aller/Immun Reports no additional complaints Assessment & Plan Assessment & Plan (1) Urinary incontinence: Code(s): R32 - Unspecified urinary incontinence Category: Medical Plan FU prn. 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 Patient Instructions: The patient had an opportunity to ask questions regarding treatment plan. The patient expressed understanding and agreement with the above treatment plan. The patient is aware they should contact our office by phone for worsening of their current condition or the appearance of new symptoms. Compliance is encouraged with any medications and followup testing that is ordered. It is a privilege to be allowed the opportunity to participate in the urologic care of your patient. If you have any questions or concerns regarding treatment for the above conditions please do not hesitate to contact me. The office telephone contact is [phone]. This note is constructed in part using voice recognition software. While every effort has been made to ensure accuracy stretching machine tender frame errors may have been included. Yours sincerely, Teo Ro MD Scribe Plan - Not visible on output: Patient was informed and verbally consented to the use of an ambient scribe for clinic note documentation during this visit. Coding Level of Care Code Est Pt Level 3 (83413) Diagnoses Urinary incontinence R32
== END 2025-01-21 11:07 | disposition home or self-care (01) ==
LOC: HO.HUSH 09:46
PROVIDERS: PCP Internal Medicine; Visit Provider Urology
DX: R32 Unspecified urinary incontinence (principal)
CPT/HCPCS: 99213

== ENCOUNTER → 2025-01-21 09:46 | Outpatient (BNVA) | payer OTHER, SELFPAY | PROVIDERS: PCP Internal Medicine; Visit Provider Urology | DX: N39.3 Stress incontinence (female) (male) (principal) | CPT/HCPCS: 99212 ==

== ENCOUNTER 2025-02-28 11:16 | Outpatient (AMB) | payer OTHER, SELFPAY ==
[2025-02-28 11:20] VITALS: BP 116/70; PULSE 80; RESP 18; TEMP 36.9; O2SAT 99; BMI 39.6
--- NOTE | 2025-02-28 11:20 | MHC.PC.OV ---
Vital Signs 02/28/25 11:20 Height 5 ft 7 in Weight 253 lb BMI 39.6 BP 116/70 Blood Pressure Location Lt brachial Position Sitting Respiration 18 Pulse 80 Pulse Source Pulse Oximeter Temp 98.5 F Temp Source Oral Pulse Oximetry (%) 99 Oxygen Delivery Method Room Air Intake Visit Reasons: Annual PE Intake Note: Pt is here today for PE. Allergies milk Adverse Reaction (Mild, Verified 02/28/25 11:21) Rash Medication List - Last Reconciled 02/28/25 by Rachelle Rodriguez MD cetirizine (Zyrtec) 10 mg PO DAILY ibuprofen 600 mg PO Q6H PRN Tobacco use date assessed: 02/28/25 Dental Screening Dental Screen Date: 02/28/25 Did you have a dental visit in the last 12 months?: Yes Did you have a dental problem in the last 6 months where you did not have access to dental care?: No Was dental information given to patient?: Patient has dentist HPI Annual PE HPI Details Pt presents for PE. 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 Mother No problems noted. Social History Housing: House Patient Tobacco Use Status: Never used Tobacco e-Cigarette/Vaping Use: Never Used service: No Current occupational status: employed Cognitive needs: No Hearing needs: No Vision needs: No Questionnaire PHQ-9 Over the last 2 weeks, how often have you been bothered by any of the following problems? 1. Little interest or pleasure in doing things: not at all 2. Feeling down, depressed, or hopeless: not at all 3. Trouble falling or staying asleep, or sleeping too much: not at all 4. Feeling tired or having little energy: not at all 5. Poor appetite or overeating: not at all 6. Feeling bad about yourself - or that you are a failure or have let yourself or your family down: not at all 7. Trouble concentrating on things, such as reading the newspaper or watching television: not at all 8. Moving or speaking so slowly that other people could have noticed. Or the opposite - being so fidgety or restless that you have been moving around a lot more than usual: not at all 9. Thoughts that you would be better off or of hurting yourself in some way: not at all Total score: 0 Depression Screening Interpretation: Negative Depression Screening Done: Yes 06695 - PHQ-9 Billing: Yes Source: Developed by Drs. Gennaro Pearson, Lorraine Godfrey, Suresh Chavez and colleagues, with an educational isacc from [employer]. Thrive Questionnaire Date Thrive assessed: 02/28/25 I am a: Patient What is your living situation today?: I have a steady place to live Within the past 12 months, did the food you bought not last and you didn't have the money to get more?: Never true Within the past 12 months, did you worry whether your food would run out before you got money to buy more?: Never true Do you have trouble paying for medicines?: No Do you have trouble getting transportation to medical appointments?: No Do you have trouble paying your heating and electricity bill?: No Do you have trouble taking care of your child, family member or friend?: No Do you have trouble with day-to-day activities such as bathing, preparing meals, shopping, managing finances, etc.?: No Are you currently unemployed and looking for a job?: No Are you interested in more education?: No Please select the resources that you would like help with: None Currently or been in a relationship where the following occur: No concerns reported THRIVE Score: 0 AUDIT C Alcohol Use Questionnaire (AUDIT-C) 1. How often do you have a drink containing alcohol?: Monthly or less 2. How many drinks containing alcohol do you have on a typical day when you are drinking?: 1 or 2 3. How often do you have six or more drinks on one occasion?: Monthly Total Score: 3 RADHA-7 AMB Questionnaire RADHA-7 Date RADHA - 7 assessed: 02/28/25 Feeling nervous, anxious, or on edge: 0 = Not at all Not being able to stop or control worryin = Several days Worrying too much about different things: 1 = Several days Trouble relaxin = Several days Being so restless that it is hard to sit still: 0 = Not at all Becoming easily annoyed or irritable: 1 = Several days Feeling afraid as if something awful might happen: 0 = Not at all Total RADHA-7 score (0-4 normal; 5-9 mild; 10-14 moderate; 15-21 severe): 4 Source: Developed by Drs. Gennaro Pearson, Lorraine Godfrey, Suresh Chavez and colleagues, with an educational isacc from [employer]. RADHA-7 Assessment Billing RADHA-7 Assessment Tool: RADHA-7 Assessment 94038 Review of Systems Const All systems reviewed & are unremarkable except as noted in HPI and below Reports no additional complaints Eyes Reports no additional complaints ENT Reports no additional complaints Card Reports no additional complaints Resp Reports no additional complaints GI Reports no additional complaints Reports no additional complaints Physical exam (Primary Care) Vital Signs: Last Vital Signs Temp 98.5 F 02/28/25 11:20 Pulse 80 02/28/25 11:20 Resp 18 02/28/25 11:20 BP 116/70 02/28/25 11:20 Pulse Ox 99 02/28/25 11:20 Oxygen Delivery Method Room Air 02/28/25 11:20 BMI result Body Mass Index 39.6 Tobacco/Smoking Status: Tobacco use Status Tobacco use date assessed 02/28/25 02/28/25 11:24 Patient Tobacco Use Status Never used Tobacco 02/28/25 11:24 e-Cigarette/Vaping Use Never Used 02/28/25 11:24 PHQ-9: PHQ-9 Score PHQ-9: Total score 0 02/28/25 11:46 Depression Screening Interpretation: Negative Thrive Assessment: Date of Thrive Assessment Date Thrive assessed 02/28/25 02/28/25 11:24 Currently or been in a relationship where the following occur: No concerns reported Const General: no acute distress HENMT Head: Yes normal to inspection Ears: hearing grossly normal bilaterally Face and sinus: Yes normal facial exam Mouth: Normal oral and palatal mucosa present Throat: Yes posterior oropharynx normal Eyes General: appearance normal, both eyes and all related structures Neck Neck: Yes no lymphadenopathy and Yes supple Resp Effort & Inspection: normal respiratory effort Auscultation: clear to auscultation bilaterally Cardio Rhythm: regular rhythm Heart sounds: S1 normal heart sound present and S2 normal heart sound present GI Inspection: Yes normal to inspection Palpation (GI): Soft to palpation Percussion: Yes normal to percussion Auscultation: normal bowel sounds Extrem General: Yes no clubbing, cyanosis or edema Coding Level of Care Code Est Pt Prev Care 18-39y(64150) Diagnoses Annual physical exam Z00. Additional Codes RADHA-7 Assessment Billing - RADHA-7 Assessment Tool: RADHA-7 Assessment 93521 ([id number]) PHQ-9 - 47830 - PHQ-9 Billing: Yes ([id number]) Assessment & Plan Assessment & Plan (1) Annual physical exam: Code(s): Z. - Encounter for general adult medical examination without abnormal findings Category: Medical Plan: Well-balanced diet regular physical activity discussed with the patient she will return for fasting blood work. 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 Panel Fast Today Z00.00 - Encounter for general adult medical examination without abnormal findings TSH reflex Free T4 Today Z00.00 - Encounter for general adult medical examination without abnormal findings UA w Microscopic Today Z00.00 - Encounter for general adult medical examination without abnormal findings
== END 2025-02-28 12:04 | disposition home or self-care (01) ==
LOC: HO.HMCC 11:17
PROVIDERS: PCP Internal Medicine; Visit Provider Internal Medicine
DX: Z00.00 Encounter for general adult medical examination without abnormal findings (principal)

== ENCOUNTER → 2025-02-28 11:16 | Outpatient (BNVA) | payer OTHER, SELFPAY | PROVIDERS: PCP Internal Medicine; Visit Provider Internal Medicine | DX: Z00.00 Encounter for general adult medical examination without abnormal findings (principal) | CPT/HCPCS: 96127; 99395 ==

== ENCOUNTER 2025-03-02 09:21 | Outpatient (REF) | payer OTHER, SELFPAY ==
[2025-03-02 11:43] LABS: MANUAL DIFF FLAG NO
[2025-03-02 12:07] LABS: Appearance Urine Clear; Basophils Percent Auto 0.8 % (0-2); Color Urine Yellow; Eosinophils Absolute Auto 0.3 X10*3/uL (0.0-0.4); Eosinophils Percent Auto 6.4 % (0-4); Glucose Urine UA Negative (Negative); Hematocrit 33.6 % (37.0-47.0); Hemoglobin 10.4 g/dl (12.0-16.0); Imm Gran Abs Auto 0.01 X10*3/uL (0.00-0.03); Imm Gran Pct Auto 0.2 % (0.0-0.4); Leukocyte Esterase Urine Negative (Negative); Lymphocytes Absolute Auto 1.8 X10*3/uL (1.2-4.9); Lymphocytes Percent Auto 35.4 % (20-40); Mean Corpuscular Hemoglobin 25.1 pg (27.0-33.0); Mean Corpuscular Volume 81.2 fL (80.0-98.0); Mean Platelet Volume 8.7 fL (9.4-12.3); Monocytes Absolute Auto 0.4 X10*3/uL (0.1-1.2); Monocytes Percent Auto 7.4 % (2-11); Neutrophils Absolute Auto 2.5 x10*3/uL (2.0-8.3); Neutrophils Percent Auto 49.8 % (45-73); Nitrite Urine Negative (Negative); Platelet Count 343 X10*3/uL (160-400); Red Blood Count 4.14 X10*6/uL (4.20-5.50); Red Cell Distribution Width 14.4 % (11.0-16.0); Specific Gravity - Urine 1.015 (1.005-1.025); UMIC TRIGGER UA YES; Urine Blood Moderate (2+) (Negative); Urine Ketones Negative (Negative); Urine Protein Negative (Neg-Trace)
[2025-03-02 12:32] LABS: Bacteria Urine None Seen (None Seen); Hyaline Casts Urine 0-2 /LPF (0-2); Squamous Epithelial Cell Urine 0-2 /HPF (0-2); WBC Urine 0-5 /HPF (0-5)
[2025-03-02 12:43] LABS: Alanine Aminotransferase 59 U/L (0-31); Albumin Level 3.9 g/dL (3.5-5.0); Anion Gap 11 (12-20); Aspartate Amino Transferase 56 U/L (5-31); Bilirubin Total 0.4 mg/dL (0.0-1.0); Blood Urea Nitrogen 10 mg/dL (9-16); Calcium 8.9 mg/dL (8.4-10.2); Carbon Dioxide 24 mmol/L (22-29); Chloride 110 mmol/L (96-108); Cholesterol 177 mg/dL (<200); Estimated Glomerular Filt Rate > 60; Glucose Fasting 90 mg/dL (60-99); HDL Cholesterol 45 mg/dL (>40); Iron 32 mcg/dL (30-160); LDL Cholesterol Calculated 118 mg/dL (<100); Percent Iron Saturation 9 % (15-50); Potassium 3.9 mmol/L (3.3-5.1); Sodium 141 mmol/L (135-145); Total Iron Binding Capacity 356 mcg/dL (228-428); Total Protein 8.1 g/dL (6.5-8.0); Triglycerides 74 mg/dL (<150); Unsaturated Iron Binding 324 ug/dL
[2025-03-02 12:59] LABS: TSH reflex Free T4 2.22 uIU/mL (0.32-4.0)
[2025-03-02 13:12] LABS: Alkaline Phosphatase 107 U/L (39-117)
== END 2025-03-02 09:22 | disposition home or self-care (01) ==
LOC: HO.HMGCLDS 09:21
PROVIDERS: PCP Internal Medicine; Visit Provider Internal Medicine
DX: Z00.00 Encounter for general adult medical examination without abnormal findings (principal)
CPT/HCPCS: 36415; 80053; 80061; 81001; 83540; 84443; 85025

== ENCOUNTER 2025-09-04 13:21 | Outpatient (AMB) | payer OTHER, SELFPAY ==
--- NOTE | 2025-09-04 13:27 | A.OFFVIS_ITS ---
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 Cloth Roll Winder concerns: history of BHAVYA, MRI done at [facility] yesterday, awaiting results. She report endometriosis with colon involvement, additionally she has rectal bleeding for quite some time and has not spoken to her primary care. No records available. HMB monthly x7d. History BLTL. Currently is sexually active. She denies vaginal itching or irritation. STI screening offered; she accepts. She tries to eat healthy and stays active with exercise. Denies family history of breast, ovarian or colon cancer. Last pap smear 2022, negative. [facility] Medical History Irregular menstrual bleeding Normal pelvic exam Food allergy Annual physical exam Overweight Rhinitis, allergic Dysmenorrhea Surgical History History of H/O tubal ligation Family History Father No problems noted. Mother No problems noted. Maternal Grandmother History of breast cancer Family/Other Ovarian cancer Social History Housing: House Patient Tobacco Use Status: Never used Tobacco e-Cigarette/Vaping Use: Never Used service: No Current occupational status: employed Cognitive needs: No Hearing needs: No Vision needs: No Female Reproductive History Menstrual Duration of menses: 6-7 days Date of last menstrual period: 08/28/25 control method: permanent sterilization Permanent Sterilization: BTL Date of last pap smear: 10/14/23 (neg pap and hpv) Review of Systems Const All systems reviewed & are unremarkable except as noted in HPI and below Reports as per HPI Eyes Reports no additional complaints ENT Reports no additional complaints Card Reports no additional complaints Resp Reports no additional complaints GI Reports as per HPI and Reports no additional complaints Reports as per HPI Musc Reports no additional complaints Skin/Breast Reports as per HPI Neuro Reports no additional complaints Psych Reports no additional complaints Endo Reports no additional complaints Chris/Lymph Reports no additional complaints Aller/Immun Reports no additional complaints Physical Exam Vital Signs: Last Vital Signs BP 120/80 09/04/25 13:29 BMI result Body Mass Index 38.7 Const General: cooperative, healthy appearing, no acute distress, well developed and alert Orientation/consciousness: patient oriented x3 HEENT Head: Yes normal to inspection Eyes General: appearance normal, both eyes and all related structures Neck Neck: Yes normal visual inspection Thyroid: Thyroid normal Chest Chest palpation & inspection: normal inspection of the chest and other (no puckering, dimpling, peau de orange, retraction, discharge, masses) Breast/axilla inspection: normal inspection of the breasts Breast/axilla palpation: normal palpation of the breasts Resp Effort & Inspection: normal respiratory effort GI Inspection: Yes normal to inspection Palpation (GI): Soft to palpation Rectal Exam - Female: deferred General: Yes bladder normal to palpation External Female Exam: normal external appearance and normal appearance of the urethra Speculum Exam - Vagina: normal appearance of the vagina, normal palpation and normal vaginal discharge Speculum Exam - Cervix: normal appearance of the cervix and normal palpation Bimanual exam- vagina & uterus: normal bimanual exam, normal palpation, uterine size normal, bladder normal to palpation, normal palpation and non-tender Bimanual Exam- Adnexa, other: no masses Skin General skin exam: no rashes or lesions noted Rashes: no rashes Neuro General: patient oriented x3 Cognition (Neuro): normal cognition Extrem General: Yes normal to inspection Psych Attitude: cooperative Thought process: Normal thought process present Assessment & Plan Assessment & Plan (1) Abnormal uterine bleeding (AUB): Code(s): N93.9 - Abnormal uterine and vaginal bleeding, unspecified Category: Medical Plan: Plan CBC today. Follow up with [facility] possible hysterectomy if indicated. Await results for plan of care at [facility]. The patient expressed understanding and agreement with the plan of care. All of her questions and concerns were addressed to the best of my ability. (2) Encounter for well woman exam with routine gynecological exam: Code(s): Z01.419 - Encounter for gynecological examination (general) (routine) without abnormal findings Category: Medical Plan Discussed: Current recommendations for pap smears per ASCCP guidelines. Breast awareness and periodic breast exams. Maintain a healthy lifestyle including a well balanced diet and routine exercise. Use condoms for STI and prevention. Strongly recommend to notify her PCP regarding rectal bleeding to expedite GI referral to have a colonoscopy evaluation. Patient verbalizes understanding and agrees to the plan of care. She was given opportunity to ask questions and all questions were answered to the best of my ability. RTO in one year for annual recruitment coordinator examination. This note is constructed using voice recognition software. While every effort has been made to ensure accuracy, polyethylene bag machine operator errors may have been included. Orders: Orders Complete Blood Count no Diff Today N93.9 - Abnormal uterine and vaginal bleeding, unspecified CT NG by PCR Vag/Cerv Today Z20.2 - Contact with and (suspected) exposure to infections with a predominantly sexual mode of transmission Bacterial Vaginosis Panel Today Z20.2 - Contact with and (suspected) exposure to infections with a predominantly sexual mode of transmission Coding Level of Care Code Est Pt Prev Care 18-39y(42231) Diagnoses Abnormal uterine bleeding (AUB) N93.9 Encounter for well woman exam with routine gynecological exam Z01.419
[2025-09-04 13:29] VITALS: BP 120/80; BMI 38.7
== END 2025-09-04 14:02 | disposition home or self-care (01) ==
LOC: HO.HWS 13:21
PROVIDERS: PCP Internal Medicine; Visit Provider Advanced Practice Midwife
DX: Z01.419 Encounter for gynecological examination (general) (routine) without abnormal findings (principal); N93.9 Abnormal uterine and vaginal bleeding, unspecified
CPT/HCPCS: 99395; 99459

== ENCOUNTER 2025-09-04 13:21 | Outpatient (REF) | payer OTHER, SELFPAY ==
[2025-09-04 16:49] LABS: Bacterial Vaginosis PCR NEGATIVE (Negative); Candida Group PCR NOT DETECTED (Not Detect); Candida glab krusei PCR NOT DETECTED (Not Detect); Trichomonas vaginalis PCR NOT DETECTED (Not Detect)
--- OUTSIDE RECORDS SUMMARY | 2025-09-04 17:08 | XMS_ITS | Clinical Summary ---
Author Organization [employer] [facility] ity Address [address] [place] [address] Care Team Providers Care Chief Of Anesthesiology Name Role Phone Unavailable Primary Care Provider Unavailabl e Social History Tobacco Use Types Packs/Day Years Used Date Smoking Tobacco: Never Assessed Comments Unknown Sex and Gender Information Value Date Recorded Sex Assigned at Not on file Legal Sex Female 10:48 PM EST Gender Identity Not on file Sexual Orientation Not on file Plan of Treatment Health Maintenance Due Date Last Done Comments DTaP,Tdap,and Td Vaccines (1 - Tdap) 2008 Hepatitis B Vaccines (1 of 3 - 19+ 3-dose series) 2008 Cervical Cancer Screening: P ap Smear 2010 HPV Vaccines (1 - 3-dose SCD M series) 2016 Depression Screening 10/31/2024 COVID-19 Vaccine ( - 2023-2 5 season) 2025 Influenza Vaccine (#1) 2025 RSV Immunization Adult Patie nts (1 - 1-dose 75+ series) 2064 HIB Vaccines Aged Out No longer eligi ble based on patient's age to complete this topic Hepatitis A Vaccines Aged Out No long er eligible based on patient's age to complete this topic IPV Vaccines Aged Out No longer eligi ble based on patient's age to complete this topic MMR Vaccines Aged Out No longer eligi ble based on patient's age to complete this topic Meningococcal ACWY Vaccine Aged Out N o longer eligible based on patient's age to complete this topic Meningococcal B Vaccine Aged Out No l onger eligible based on patient's age to complete this topic Pneumococcal Vaccine: Pediat rics (0 to 5 Years) and At-Risk Patients (6 to 49 Years) Aged Out No longer eligible b ased on patient's age to complete this topic RSV Immunization Patients Un mati 20 months Aged Out No longer eligible b ased on patient's age to complete this topic Varicella Vaccines Aged Out No longer eligible based on patient's age to complete this topic
[2025-09-04 17:18] LABS: CT PCR NOT DETECTED (Not Detect.); NG PCR NOT DETECTED (Not Detect.)
== END 2025-09-04 13:22 | disposition home or self-care (01) ==
LOC: HO.LNP 13:21
PROVIDERS: PCP Internal Medicine; Visit Provider Advanced Practice Midwife
DX: Z01.419 Encounter for gynecological examination (general) (routine) without abnormal findings (principal); N93.9 Abnormal uterine and vaginal bleeding, unspecified; Z20.2 Contact with and (suspected) exposure to infections with a predominantly sexual mode of transmission
CPT/HCPCS: 81515; 87491; 87591; 99395

== ENCOUNTER 2025-09-04 13:56 | Outpatient (REF) | payer OTHER, SELFPAY ==
[2025-09-04 14:56] LABS: Hematocrit 35.6 % (37.0-47.0); Hemoglobin 10.8 g/dl (12.0-16.0); Mean Corpuscular HGB Conc 30.3 g/dl (31.0-35.0); Mean Corpuscular Hemoglobin 25.1 pg (27.0-33.0); Mean Corpuscular Volume 82.6 fL (80.0-98.0); NRBC Abs Auto 0.000 X10*3/uL (0.0-0.012); NRBC Pct Auto 0.0 /100WBC (0.0-0.2); Platelet Count 364 X10*3/uL (160-400); Red Blood Count 4.31 X10*6/uL (4.20-5.50); White Blood Count 7.1 X10*3/uL (4.8-10.8)
== END 2025-09-04 13:57 | disposition home or self-care (01) ==
LOC: HO.LAB 13:56
PROVIDERS: PCP Internal Medicine; Visit Provider Advanced Practice Midwife
DX: N93.9 Abnormal uterine and vaginal bleeding, unspecified (principal)
CPT/HCPCS: 36415; 85027

== ENCOUNTER 2025-09-06 11:18 | Outpatient (AMB) | payer OTHER, SELFPAY ==
[2025-09-06 11:20] VITALS: BP 122/78; PULSE 91; RESP 17; TEMP 36.9; O2SAT 99; BMI 38.4
--- NOTE | 2025-09-06 11:20 | A.OFFPC_ITS ---
Vital Signs 09/06/25 11:20 Height 5 ft 7 in Weight 245 lb BMI 38.4 BP 122/78 Blood Pressure Location Lt brachial Position Sitting Respiration 17 Pulse 91 Pulse Source Pulse Oximeter Temp 98.4 F Temp Source Oral Pulse Oximetry (%) 99 Oxygen Delivery Method Room Air Intake Visit Reasons: Rectal bleeding, refer to GI Intake Note: Pt is here today for a sick visit. Pt c/o rectal bleeding pt is requesting GI referral. Allergies milk Adverse Reaction (Mild, Verified 09/06/25 11:20) Rash Medication List - Last Reconciled 09/06/25 by Rachelle Rodriguez MD cetirizine (Zyrtec) 10 mg PO DAILY ibuprofen 600 mg PO Q6H PRN multivitamin 1 tab PO DAILY Tobacco use date assessed: 09/06/25 Dental Screening Dental Screen Date: 02/28/25 HPI Rectal bleeding, refer to GI HPI Details Pt c/o rectal bleeding after heavy bowel movements not mixed with the stool on and off for 1 year becoming more frequent recently. Patient denies abdominal pain but reports rectal burning and discomfort and has alternating constipation and diarrhea. Patient denies any food intolerance or weight loss. She was seen by product development coordinator who recommend the patient to see GI for evaluation. [facility] Medical History Irregular menstrual bleeding Normal pelvic exam Food allergy Annual physical exam Overweight Rhinitis, allergic Dysmenorrhea Surgical History History of H/O tubal ligation Family History Father No problems noted. Mother No problems noted. Maternal Grandmother History of breast cancer Family/Other Ovarian cancer Social History Housing: House Patient Tobacco Use Status: Never used Tobacco e-Cigarette/Vaping Use: Never Used service: No Current occupational status: employed Cognitive needs: No Hearing needs: No Vision needs: No Questionnaire PHQ-9 Over the last 2 weeks, how often have you been bothered by any of the following problems? 1. Little interest or pleasure in doing things: not at all 2. Feeling down, depressed, or hopeless: not at all 3. Trouble falling or staying asleep, or sleeping too much: not at all 4. Feeling tired or having little energy: not at all 5. Poor appetite or overeating: not at all 6. Feeling bad about yourself - or that you are a failure or have let yourself or your family down: not at all 7. Trouble concentrating on things, such as reading the newspaper or watching television: not at all 8. Moving or speaking so slowly that other people could have noticed. Or the opposite - being so fidgety or restless that you have been moving around a lot more than usual: not at all 9. Thoughts that you would be better off or of hurting yourself in some way: not at all Total score: 0 Depression Screening Interpretation: Negative Depression Screening Done: Yes Source: Developed by Drs. Gennaro Pearson, Lorraine Godfrey, Suresh Chavez and colleagues, with an educational isacc from [employer]. Thrive Questionnaire Date Thrive assessed: 02/28/25 I am a: Patient What is your living situation today?: I have a steady place to live Within the past 12 months, did the food you bought not last and you didn't have the money to get more?: Never true Within the past 12 months, did you worry whether your food would run out before you got money to buy more?: Never true Do you have trouble paying for medicines?: No Do you have trouble getting transportation to medical appointments?: No Do you have trouble paying your heating and electricity bill?: No Do you have trouble taking care of your child, family member or friend?: No Do you have trouble with day-to-day activities such as bathing, preparing meals, shopping, managing finances, etc.?: No Are you currently unemployed and looking for a job?: No Are you interested in more education?: No Please select the resources that you would like help with: None Currently or been in a relationship where the following occur: No concerns reported THRIVE Score: 0 RADHA-7 AMB Questionnaire RADHA-7 Date RADHA - 7 assessed: 02/28/25 Feeling nervous, anxious, or on edge: 0 = Not at all Not being able to stop or control worryin = Several days Worrying too much about different things: 1 = Several days Trouble relaxin = Several days Being so restless that it is hard to sit still: 0 = Not at all Becoming easily annoyed or irritable: 1 = Several days Feeling afraid as if something awful might happen: 0 = Not at all Total RADHA-7 score (0-4 normal; 5-9 mild; 10-14 moderate; 15-21 severe): 4 Source: Developed by Drs. Gennaro Pearson, Lorraine Godfrey, Suresh Chavez and colleagues, with an educational isacc from [employer]. Review of Systems Const All systems reviewed & are unremarkable except as noted in HPI and below Eyes Reports no additional complaints ENT Reports no additional complaints Card Reports no additional complaints Resp Reports no additional complaints GI Reports no additional complaints Reports no additional complaints Musc Reports no additional complaints Physical exam (Primary Care) Vital Signs: Last Vital Signs Temp 98.4 F 09/06/25 11:20 Pulse 91 09/06/25 11:20 Resp 17 09/06/25 11:20 BP 122/78 09/06/25 11:20 Pulse Ox 99 09/06/25 11:20 Oxygen Delivery Method Room Air 09/06/25 11:20 BMI result Body Mass Index 38.4 Tobacco/Smoking Status: Tobacco use Status Tobacco use date assessed 09/06/25 09/06/25 11:25 Patient Tobacco Use Status Never used Tobacco 09/06/25 11:25 e-Cigarette/Vaping Use Never Used 09/06/25 11:25 PHQ-9: PHQ-9 Score PHQ-9: Total score 0 09/06/25 11:26 Depression Screening Interpretation: Negative Thrive Assessment: Date of Thrive Assessment Date Thrive assessed 02/28/25 09/06/25 11:25 Currently or been in a relationship where the following occur: No concerns reported Const General: no acute distress HENMT Head: Yes normal to inspection Face and sinus: Yes normal facial exam Eyes General: appearance normal, both eyes and all related structures Resp Effort & Inspection: normal respiratory effort Auscultation: clear to auscultation bilaterally Cardio Rhythm: regular rhythm Heart sounds: S1 normal heart sound present and S2 normal heart sound present GI Inspection: Yes normal to inspection Percussion: Yes normal to percussion Auscultation: normal bowel sounds Rectal Exam - Female: deferred (Patient refused rectal exam) Coding Level of Care Code Est Pt Level 3 (77869) Diagnoses Rectal bleeding K62.5 Assessment & Plan Assessment & Plan (1) Rectal bleeding: Code(s): K62.5 - Hemorrhage of anus and rectum Category: Medical Plan: For intermittent rectal bleeding most likely related to hemorrhoids supportive care including taking stool softeners to prevent constipation, straining while having bowel movement, using cleaning wipes discussed with the patient. Proctocort supp sent and patient will be referred to GI as she requested Orders: Referrals Gastroenterology Referral K62.5 - Hemorrhage of anus and rectum Medications: New hydrocortisone acetate (Proctocort) 30 mg [place] BEDTIME 12 ea 1RF
--- OUTSIDE RECORDS SUMMARY | 2025-09-06 13:41 | XMS_ITS | Clinical Summary ---
Author Organization [employer] [facility] ity Address [address] [place] [address] Care Team Providers Care Student Life Advisor Name Role Phone Unavailable Primary Care Provider [...]
--- OUTSIDE RECORDS SUMMARY | 2025-09-06 13:41 | XMS_ITS | Clinical Summary ---
Author Organization [facility] Address [address] [place] [address] Care Team Providers Care Cement Mason Helper Name Role Phone Unavailable Primary Care Provider Unavailabl e Source Comments PLEASE NOTE, if this patient is a minor, it may be UNLAWFUL to discuss sensitive information that is contained in these records (such as FAMILY PLANNING, MENTAL HEALTH or SUBSTANCE ABUSE) with the minor patient's parent or other person without the patient's specific authorization.[facility] Medications fluoride, sodium, (SF 5000 PLUS) 1.1 % creaIndications :Enamel caries Robbins twice daily with toothpaste then expectorate. Do not rinse. 51 g 3 8 Active Active Problems No known active problems Social History Tobacco Use Types Packs/Day Years Used Date Smoking Tobacco: Never Assessed Social Connections Answer Date Recorded Connectedness 0 07/19/2024 Financial Resource Strain Answer Date R ecorded Financial Resource Strain 0 2018 Stress Answer Date Recorded Stress 0 06/24/2019 Physical Activity Answer Date Recorded Physical Activity 0 06/24/2019 Food Insecurity Answer Date Recorded Food 0 07/26/2024 Transportation Needs Answer Date Record ed Transportation 0 06/24/2019 Housing Stability Answer Date Recorded Housing 0 06/24/2019 Safety and Environment Answer Date Wesley rded Safety 0 06/24/2019 Utilities Answer Date Recorded Utilities 0 06/24/2019 Employment Answer Date Recorded Stress 0 07/19/2024 Comments Unknown Sex and Gender Information Value Date Recorded Sex Assigned at Not on file Legal Sex Female 6:20 AM PST Gender Identity Not on file Sexual Orientation Not on file Last Filed Vital Signs Vital Sign Reading Time Taken Comments Blood Pressure 107/70 02/22/2022 2:09 PM EDT Pulse 79 02/22/2022 2:09 PM EDT Temperature - - Respiratory Rate - - Oxygen Saturation - - Inhaled Oxygen Concentration - - Weight - - Height - - Body Mass Index - - Plan of Treatment Not on file Insurance [facility] [place] [place] [address] DENTAL
== END 2025-09-06 12:42 | disposition home or self-care (01) ==
LOC: HO.HMCC 11:19
PROVIDERS: PCP Internal Medicine; Visit Provider Internal Medicine
DX: K62.5 Hemorrhage of anus and rectum (principal)

== ENCOUNTER → 2025-09-06 11:18 | Outpatient (BNVA) | payer OTHER, SELFPAY | PROVIDERS: PCP Internal Medicine; Visit Provider Internal Medicine | DX: K62.5 Hemorrhage of anus and rectum (principal); K59.00 Constipation, unspecified; R19.7 Diarrhea, unspecified | CPT/HCPCS: 99212 ==